=== PATIENT | female | born 1960 | race Caucasian/White ===

== ENCOUNTER → 2018-07-27 09:42 | Outpatient (CLI) | payer OTHER, SELFPAY ==
--- NOTE | 2018-07-27 | DI.MG.S_ITS ---
BILATERAL DIGITAL SCREENING MAMMOGRAM 3D/2D WITH CAD: 07/27/2018 CLINICAL: Routine screening. Family history of breast cancer. Comparison is made to exams dated: 07/19/2015 mammogram - [facility], 02/27/2013 mammogram, and 04/09/2009 mammogram - [facility]. There are scattered fibroglandular elements in both breasts. Current study was also evaluated with a Computer Aided Detection (CAD) system. No significant masses, calcifications, or other findings are seen in either breast. There has been no significant interval change. IMPRESSION: NEGATIVE There is no mammographic evidence of malignancy. A 1 year screening mammogram is recommended. NOTE: For mammograms, a report in lay terms will be sent to the patient. Approximately 15% of breast malignancies will not be visualized mammographically. In the management of a palpable breast mass, a negative mammogram must not discourage biopsy of a clinically suspicious lesion. Electronically Signed By: Twila flower/jayla:07/27/2018 14:11:20 letter sent: Normal Exam ACR BI-RADS Category 1: Negative 3341F
== END ==
PROVIDERS: PCP Family Medicine; Visit Provider Family Medicine
DX: Z12.31 Encounter for screening mammogram for malignant neoplasm of breast (principal); Z80.3 Family history of malignant neoplasm of breast
CPT/HCPCS: 77063; 77067

== ENCOUNTER → 2019-07-17 09:40 | Outpatient (CLI) | payer OTHER, SELFPAY ==
--- NOTE | 2019-07-17 | DI.US.S_ITS ---
PROCEDURE: US RENAL COMPLETE INDICATIONS: UNSPECIFIED RENAL COLIC TECHNIQUE: Real-time scanning was performed of the kidneys and bladder, with image documentation. COMPARISON: [facility], CT, ABDOMEN W&WO CONTRAST, 07/26/2015, 10:20. FINDINGS: Kidneys: Kidneys are normal in size. Right kidney measures 11.6 cm long; left kidney measures 8.7 cm long. Right renal cortical thickness is 1.6 cm; left renal cortical thickness is 1.7 cm. Renal cortical echotexture is normal. No hydronephrosis or nephrolithiasis. No suspicious solid mass lesions. Recent partial left nephrectomy. Bladder: Pre-void bladder volume is 27 mL. Post-void residual is no evaluated Pre-void images demonstrate no intraluminal masses or stones. On pre-void images, neither ureteral jets are noted with color Doppler interrogation. (Of note, ureteral jets may not be detectable in up to 25% of cases due to insufficient differences in specific gravity between ureteral and bladder urine). Miscellaneous: No free pelvic fluid. IMPRESSION: Normal appearance of the kidneys. Dictated by: Gibson DÍAZ Interpreted: Kaci Oquendo MD on 07/17/2019 at 10:46 Approved by: Kaci Oquendo M.D. on 07/17/2019 at 13:10
== END ==
PROVIDERS: PCP Family Medicine; Visit Provider Family Medicine
DX: N23 Unspecified renal colic (principal)
CPT/HCPCS: 76770

== ENCOUNTER → 2021-01-14 09:47 | Outpatient (CLI) | payer OTHER, SELFPAY ==
[2021-01-14 19:31] LABS: Hemoglobin A1C% w Est Avg Glu 4.3 % (4.0-6.0)
[2021-01-14 19:34] LABS: Alanine Aminotransferase 23 IU/L (<35); Albumin 4.5 g/dL (3.5-5.0); Albumin Globulin Ratio 1.3 (1.0-2.8); Alkaline Phosphatase 75 U/L (38-126); Aspartate Aminotransferase 27 IU/L (14-36); Bilirubin Total 1.3 mg/dL (0.2-1.3); Blood Urea Nitrogen 13 mg/dL (7-17); Calcium 10.4 mg/dL (8.4-10.2); Carbon Dioxide 25 mmol/L (22-32); Chloride 103 mmol/L (98-107); Cholesterol 225 mg/dL (140-199); Estimated Glomerular Filt Rate > 60.0 mL/min (>60); Globulin 3.4 g/dL (1.7-4.1); Glucose 106 mg/dL (80-110); HDL Cholesterol 58 mg/dL (40-60); HEMOLYSIS < 15 (0-50); LDL Cholesterol Calculated 144 mg/dL (<100); Potassium 4.5 mmol/L (3.4-5.1); Sodium 138 mmol/L (137-145); Total Protein 7.9 g/dL (6.3-8.2); Triglycerides 115 mg/dL (35-150)
== END ==
PROVIDERS: PCP Family Medicine; Visit Provider Physician Assistant Medical
DX: E11.9 Type 2 diabetes mellitus without complications (principal); E78.5 Hyperlipidemia, unspecified
CPT/HCPCS: 80053; 80061; 83036

== ENCOUNTER → 2021-02-19 09:48 | Outpatient (CLI) | payer OTHER, SELFPAY ==
--- NOTE | 2021-02-19 | DI.MG.S_ITS ---
BILATERAL DIGITAL SCREENING MAMMOGRAM 3D/2D WITH CAD: 02/19/2021 CLINICAL: Routine screening. Family history of breast cancer. Comparison is made to exams dated: 07/27/2018 mammogram, 07/19/2015 mammogram - [facility], and 02/27/2013 mammogram - [facility]. There are scattered fibroglandular elements in both breasts. Current study was also evaluated with a Computer Aided Detection (CAD) system. No significant masses, calcifications, or other findings are seen in either breast. There has been no significant interval change. IMPRESSION: NEGATIVE There is no mammographic evidence of malignancy. A 1 year screening mammogram is recommended. This exam was interpreted at Station ID: [id number]. NOTE: For mammograms, a report in lay terms will be sent to the patient. Approximately 15% of breast malignancies will not be visualized mammographically. In the management of a palpable breast mass, a negative mammogram must not discourage biopsy of a clinically suspicious lesion. Electronically Signed By: Lui sellers/jayla:02/19/2021 10:48:25 letter sent: Normal Exam ACR BI-RADS Category 1: Negative 3341F
== END ==
PROVIDERS: PCP Physician Assistant Medical; Referring Provider Physician Assistant Medical; Visit Provider Physician Assistant Medical
DX: Z12.31 Encounter for screening mammogram for malignant neoplasm of breast (principal); Z80.3 Family history of malignant neoplasm of breast; Z78.0 Asymptomatic menopausal state; M81.0 Age-related osteoporosis without current pathological fracture; M06.9 Rheumatoid arthritis, unspecified; E11.9 Type 2 diabetes mellitus without complications; E83.52 Hypercalcemia; Z82.62 Family history of osteoporosis
CPT/HCPCS: 77063; 77067; 77080

== ENCOUNTER → 2021-04-01 12:00 | Outpatient (CLI) | payer OTHER, SELFPAY ==
[2021-04-01 19:09] LABS: Hemoglobin A1C% w Est Avg Glu 4.5 % (4.0-6.0)
[2021-04-01 19:10] LABS: Alanine Aminotransferase 26 IU/L (<35); Albumin 4.2 g/dL (3.5-5.0); Albumin Globulin Ratio 1.3 (1.0-2.8); Alkaline Phosphatase 81 U/L (38-126); Aspartate Aminotransferase 24 IU/L (14-36); BUN Creatinine Ratio 27.4 (6-22); Blood Urea Nitrogen 17 mg/dL (7-17); Calcium 10.5 mg/dL (8.4-10.2); Carbon Dioxide 27 mmol/L (22-32); Chloride 100 mmol/L (98-107); Estimated Glomerular Filt Rate > 60.0 mL/min (>60); Globulin 3.3 g/dL (1.7-4.1); Glucose 84 mg/dL (80-110); HEMOLYSIS < 15 (0-50); Sodium 136 mmol/L (137-145); Total Protein 7.5 g/dL (6.3-8.2)
[2021-04-01 19:39] LABS: TSH w/ Reflex to FT4 1.25 uIU/mL (0.47-4.68)
== END ==
PROVIDERS: PCP Physician Assistant Medical; Visit Provider Physician Assistant Medical
DX: E83.52 Hypercalcemia (principal); R00.2 Palpitations; E11.9 Type 2 diabetes mellitus without complications
CPT/HCPCS: 80053; 83036; 84443

== ENCOUNTER → 2021-04-03 11:43 | Outpatient (CLI) | payer OTHER, SELFPAY ==
[2021-04-05 09:28] LABS: Parathyroid Hormone Int 35 pg/mL (15-65)
== END ==
PROVIDERS: PCP Physician Assistant Medical; Visit Provider Physician Assistant Medical
DX: E83.52 Hypercalcemia (principal)
CPT/HCPCS: 83970

== ENCOUNTER → 2021-06-11 10:43 | Outpatient (CLI) | payer OTHER, SELFPAY ==
[2021-06-11 19:14] LABS: Add Manual Diff / Slide Review NO; Basophils Absolute Auto 0 /uL (0-100); Basophils Percent Auto 0.7 % (0-2); Eosinophils Absolute Auto 100 /uL (0-450); Eosinophils Percent Auto 1.3 % (2-4); Hematocrit 40.6 % (36-46); Hemoglobin 13.7 g/dL (12.0-16.0); Lymphocytes Absolute Auto 1100 /uL (1100-4500); Lymphocytes Percent Auto 18.4 % (25-40); Mean Corpuscular HGB Conc 33.8 % (30-36); Mean Corpuscular Hemoglobin 29.3 PG (26-34); Mean Corpuscular Volume 86.7 fL (80-100); Monocytes Absolute Auto 600 /uL (0-900); Monocytes Percent Auto 11.1 % (3-14); Neutrophils Absolute Auto 4000 /uL (1500-7000); Neutrophils Percent Auto 68.5 % (50-75); Platelet Count 349 X10^3/uL (150-400); Red Blood Cell Count 4.68 X10^6/uL (4.0-5.2); Red Cell Distribution Width 14.9 % (11.6-14.8); White Blood Cell Count 5.8 X10^3/uL (4.5-11.0)
[2021-06-11 19:18] LABS: Alanine Aminotransferase 27 IU/L (<35); Albumin 4.6 g/dL (3.5-5.0); Albumin Globulin Ratio 1.4 (1.0-2.8); Alkaline Phosphatase 82 U/L (38-126); Aspartate Aminotransferase 25 IU/L (14-36); Bilirubin Total 0.9 mg/dL (0.2-1.3); Blood Urea Nitrogen 18 mg/dL (7-17); C-Reactive Protein Quant 1.2 mg/dL (<1.0); Calcium 10.2 mg/dL (8.4-10.2); Carbon Dioxide 28 mmol/L (22-32); Chloride 102 mmol/L (98-107); Estimated Glomerular Filt Rate > 60.0 mL/min (>60); Globulin 3.2 g/dL (1.7-4.1); Glucose 91 mg/dL (80-110); HEMOLYSIS < 15 (0-50); Potassium 4.6 mmol/L (3.4-5.1); Sodium 137 mmol/L (137-145); Total Protein 7.8 g/dL (6.3-8.2)
[2021-06-11 19:45] LABS: Erythrocyte Sedimentation Rate 12 MM/HR (0-20)
[2021-06-12 16:52] LABS: Hep C Virus Ab w/Reflex Quant NEGATIVE s/c (NEGATIVE); Hepatitis B Surface Antigen NEGATIVE s/c (NEGATIVE)
[2021-06-16 16:16] LABS: QuantiFERON Mitogen Value >10.00 IU/mL (.); QuantiFERON Nil Value 0.03 IU/mL (.); QuantiFERON TB Gold Plus Negative (Negative); QuantiFERON TB1 Ag Value 0.02 IU/mL (.); QuantiFERON TB2 Ag Value 0.03 IU/mL (.)
== END ==
PROVIDERS: PCP Physician Assistant Medical; Visit Provider Internal Medicine Rheumatology
DX: E83.52 Hypercalcemia (principal)
CPT/HCPCS: 36415; 80053; 85025; 85651; 86140; 86480; 86803; 87340

== ENCOUNTER → 2021-11-20 12:37 | Outpatient (CLI) | payer OTHER, SELFPAY ==
[2021-11-20 19:03] LABS: Add Manual Diff / Slide Review NO; Basophils Absolute Auto 100 /uL (0-100); Basophils Percent Auto 0.9 % (0-2); Eosinophils Absolute Auto 0 /uL (0-450); Eosinophils Percent Auto 0.6 % (2-4); Hematocrit 38.7 % (36-46); Hemoglobin 13.3 g/dL (12.0-16.0); Lymphocytes Absolute Auto 1100 /uL (1100-4500); Lymphocytes Percent Auto 19.5 % (25-40); Mean Corpuscular HGB Conc 34.3 % (30-36); Mean Corpuscular Hemoglobin 29.1 PG (26-34); Mean Corpuscular Volume 84.9 fL (80-100); Monocytes Absolute Auto 500 /uL (0-900); Monocytes Percent Auto 8.2 % (3-14); Neutrophils Absolute Auto 4100 /uL (1500-7000); Neutrophils Percent Auto 70.8 % (50-75); Platelet Count 402 X10^3/uL (150-400); Red Blood Cell Count 4.56 X10^6/uL (4.0-5.2); Red Cell Distribution Width 14.8 % (11.6-14.8); White Blood Cell Count 5.8 X10^3/uL (4.5-11.0)
[2021-11-20 19:13] LABS: Alanine Aminotransferase 22 IU/L (<35); Albumin 4.6 g/dL (3.5-5.0); Albumin Globulin Ratio 1.3 (1.0-2.8); Alkaline Phosphatase 68 U/L (38-126); Aspartate Aminotransferase 23 IU/L (14-36); BUN Creatinine Ratio 31.4 (6-22); Bilirubin Total 1.1 mg/dL (0.2-1.3); Blood Urea Nitrogen 22 mg/dL (7-17); Calcium 9.8 mg/dL (8.4-10.2); Carbon Dioxide 29 mmol/L (22-32); Chloride 102 mmol/L (98-107); Estimated Glomerular Filt Rate > 60.0 mL/min (>60); Globulin 3.5 g/dL (1.7-4.1); Glucose 104 mg/dL (80-110); HEMOLYSIS < 15 (0-50); Potassium 4.4 mmol/L (3.4-5.1); Sodium 138 mmol/L (137-145); Total Protein 8.1 g/dL (6.3-8.2)
[2021-11-24 20:27] LABS: Dilute Russell Viper Venom 30.1 sec (0.0-47.0); Lupus Reflex Interpretation Comment: (.); PTT-LA 33.4 sec (0.0-51.9)
[2021-12-04 12:51] LABS: Cardiolipin IgA NEGATIVE
== END ==
PROVIDERS: PCP Physician Assistant Medical; Visit Provider Internal Medicine Rheumatology
DX: M05.79 Rheumatoid arthritis with rheumatoid factor of multiple sites without organ or systems involvement (principal); R76.0 Raised antibody titer
CPT/HCPCS: 80053; 83520; 85025; 85598; 85613; 86147; 86148

== ENCOUNTER → 2022-05-21 10:46 | Outpatient (CLI) | payer OTHER, SELFPAY ==
--- NOTE | 2022-05-21 | DI.MG.S_ITS ---
BILATERAL DIGITAL SCREENING MAMMOGRAM 3D/2D WITH CAD: 05/21/2022 CLINICAL: Routine screening. Family history of breast cancer. Comparison is made to exams dated: 02/19/2021 mammogram, 07/27/2018 mammogram, and 07/19/2015 mammogram - [facility]. There are scattered areas of fibroglandular density in both breasts (category b / 25%-50% glandular tissue). Current study was also evaluated with a Computer Aided Detection (CAD) system. No significant masses, calcifications, or other findings are seen in either breast. There has been no significant interval change. IMPRESSION: NEGATIVE There is no mammographic evidence of malignancy. A 1 year screening mammogram is recommended. Based on the Tyrer Cuzick model (a risk assessment model) the patient's lifetime risk is 9.0% and her 10 year risk is 4.0%. According to the ACR, ACS, and NCCN guidelines, an annual breast MRI exam along with mammogram is recommended if the patient's lifetime risk is 20% or greater. This exam was interpreted at Station ID: [id number]. NOTE: For mammograms, a report in lay terms will be sent to the patient. Approximately 15% of breast malignancies will not be visualized mammographically. In the management of a palpable breast mass, a negative mammogram must not discourage biopsy of a clinically suspicious lesion. Electronically Signed By: Waqas cobb/jayla:05/21/2022 12:31:56 letter sent: Normal Exam ACR BI-RADS Category 1: Negative 3341F
== END ==
PROVIDERS: PCP Physician Assistant Medical; Referring Provider Physician Assistant Medical; Visit Provider Physician Assistant Medical
DX: Z12.31 Encounter for screening mammogram for malignant neoplasm of breast (principal); Z80.3 Family history of malignant neoplasm of breast
CPT/HCPCS: 77063; 77067

== ENCOUNTER → 2022-07-07 09:34 | Outpatient (CLI) | payer OTHER, SELFPAY ==
[2022-07-07 19:23] LABS: Add Manual Diff / Slide Review NO; Basophils Absolute Auto 0 /uL (0-100); Basophils Percent Auto 0.8 % (0-2); Eosinophils Absolute Auto 100 /uL (0-450); Eosinophils Percent Auto 1.4 % (2-4); Hematocrit 37.8 % (36-46); Hemoglobin 13.2 g/dL (12.0-16.0); Lymphocytes Absolute Auto 1100 /uL (1100-4500); Lymphocytes Percent Auto 17.2 % (25-40); Mean Corpuscular HGB Conc 34.9 % (30-36); Mean Corpuscular Hemoglobin 29.6 PG (26-34); Mean Corpuscular Volume 84.6 fL (80-100); Monocytes Absolute Auto 600 /uL (0-900); Monocytes Percent Auto 10.2 % (3-14); Neutrophils Absolute Auto 4300 /uL (1500-7000); Neutrophils Percent Auto 70.4 % (50-75); Platelet Count 369 X10^3/uL (150-400); Red Blood Cell Count 4.47 X10^6/uL (4.0-5.2); Red Cell Distribution Width 15.3 % (11.6-14.8); White Blood Cell Count 6.2 X10^3/uL (4.5-11.0)
[2022-07-07 19:36] LABS: Alanine Aminotransferase 37 IU/L (<35); Albumin 4.4 g/dL (3.5-5.0); Albumin Globulin Ratio 1.3 (1.0-2.8); Alkaline Phosphatase 83 U/L (38-126); Aspartate Aminotransferase 23 IU/L (14-36); Bilirubin Total 0.9 mg/dL (0.2-1.3); Blood Urea Nitrogen 20 mg/dL (7-17); C-Reactive Protein Quant 1.2 mg/dL (<1.0); Calcium 9.3 mg/dL (8.4-10.2); Carbon Dioxide 26 mmol/L (22-32); Chloride 99 mmol/L (98-107); Cholesterol 231 mg/dL (140-199); Estimated Glomerular Filt Rate > 60 mL/min (>60); Globulin 3.4 g/dL (1.7-4.1); Glucose 112 mg/dL (80-110); HDL Cholesterol 53 mg/dL (40-60); HEMOLYSIS < 15 (0-50); LDL Cholesterol Calculated 154 mg/dL (<100); Potassium 4.4 mmol/L (3.4-5.1); Sodium 136 mmol/L (137-145); Total Protein 7.8 g/dL (6.3-8.2); Triglycerides 119 mg/dL (35-150)
[2022-07-07 20:25] LABS: Erythrocyte Sedimentation Rate 17 MM/HR (0-20)
== END ==
PROVIDERS: PCP Physician Assistant Medical; Visit Provider Internal Medicine Rheumatology
DX: M05.79 Rheumatoid arthritis with rheumatoid factor of multiple sites without organ or systems involvement (principal); Z79.899 Other long term (current) drug therapy
CPT/HCPCS: 80053; 80061; 85025; 85651; 86140

== ENCOUNTER → 2022-10-19 09:36 | Outpatient (CLI) | payer OTHER, SELFPAY ==
[2022-10-19 19:32] LABS: Alanine Aminotransferase 43 IU/L (<35); Albumin 4.4 g/dL (3.5-5.0); Albumin Globulin Ratio 1.3 (1.0-2.8); Alkaline Phosphatase 81 U/L (38-126); Aspartate Aminotransferase 32 IU/L (14-36); BUN Creatinine Ratio 25.4 (6-22); Bilirubin Total 1.1 mg/dL (0.2-1.3); Blood Urea Nitrogen 18 mg/dL (7-17); Calcium 9.7 mg/dL (8.4-10.2); Carbon Dioxide 28 mmol/L (22-32); Chloride 100 mmol/L (98-107); Cholesterol 203 mg/dL (140-199); Estimated Glomerular Filt Rate > 60 mL/min (>60); Globulin 3.4 g/dL (1.7-4.1); Glucose 110 mg/dL (80-110); HDL Cholesterol 73 mg/dL (40-60); HEMOLYSIS < 15 (0-50); LDL Cholesterol Calculated 102 mg/dL (<100); Potassium 4.6 mmol/L (3.4-5.1); Sodium 138 mmol/L (137-145); Total Protein 7.8 g/dL (6.3-8.2); Triglycerides 141 mg/dL (35-150)
[2022-10-19 20:04] LABS: TSH w/ Reflex to FT4 1.33 uIU/mL (0.47-4.68)
[2022-10-19 20:44] LABS: Hemoglobin A1C% w Est Avg Glu 4.9 % (4.0-6.0)
== END ==
PROVIDERS: PCP Physician Assistant Medical; Visit Provider Physician Assistant Medical
DX: E11.9 Type 2 diabetes mellitus without complications (principal); E78.5 Hyperlipidemia, unspecified; E83.52 Hypercalcemia; I10 Essential (primary) hypertension
CPT/HCPCS: 80053; 80061; 83036; 84443

== ENCOUNTER → 2023-01-11 09:10 | Outpatient (CLI) | payer OTHER, SELFPAY ==
[2023-01-11 19:50] LABS: Alanine Aminotransferase 29 IU/L (<35); Albumin 4.5 g/dL (3.5-5.0); Albumin Globulin Ratio 1.4 (1.0-2.8); Alkaline Phosphatase 73 U/L (38-126); Aspartate Aminotransferase 23 IU/L (14-36); BUN Creatinine Ratio 29.7 (6-22); Bilirubin Total 1.1 mg/dL (0.2-1.3); Blood Urea Nitrogen 19 mg/dL (7-17); Calcium 9.4 mg/dL (8.4-10.2); Carbon Dioxide 27 mmol/L (22-32); Chloride 100 mmol/L (98-107); Cholesterol 174 mg/dL (140-199); Estimated Glomerular Filt Rate > 60 mL/min (>60); Globulin 3.2 g/dL (1.7-4.1); Glucose 112 mg/dL (80-110); HDL Cholesterol 65 mg/dL (40-60); HEMOLYSIS < 15 (0-50); LDL Cholesterol Calculated 87 mg/dL (<100); Potassium 4.5 mmol/L (3.4-5.1); Sodium 137 mmol/L (137-145); Total Protein 7.7 g/dL (6.3-8.2); Triglycerides 110 mg/dL (35-150)
[2023-01-11 20:13] LABS: TSH w/ Reflex to FT4 1.82 uIU/mL (0.47-4.68)
[2023-01-13 01:51] LABS: Labcorp Hemoglobin (Hb) A1c 4.8 % (4.8-5.6)
== END ==
PROVIDERS: PCP Physician Assistant Medical; Visit Provider Physician Assistant Medical
DX: E11.9 Type 2 diabetes mellitus without complications (principal); E78.5 Hyperlipidemia, unspecified; I10 Essential (primary) hypertension
CPT/HCPCS: 80053; 80061; 83036; 84443

== ENCOUNTER → 2023-02-02 13:57 | Outpatient (CLI) | payer OTHER, SELFPAY ==
[2023-02-02 14:45] LABS: D Dimer < 215 ng/ml (<500)
== END ==
PROVIDERS: Physician Assistant; PCP Physician Assistant Medical; Referring Provider Physician Assistant Medical; Visit Provider Physician Assistant Medical
DX: M79.606 Pain in leg, unspecified (principal)
CPT/HCPCS: 36415; 85379

== ENCOUNTER → 2023-02-09 12:58 | Outpatient (CLI) | payer OTHER, SELFPAY ==
[2023-02-09 20:41] LABS: Creatinine Urine Random 8.2 mg/dL
[2023-02-09 20:45] LABS: Microalbumin Urine Random < 0.6 mg/dL (0-1.6)
[2023-02-09 20:56] LABS: Vitamin B12 Reflex MMA if <400 832 pg/mL (239-931)
== END ==
PROVIDERS: PCP Physician Assistant Medical; Visit Provider Physician Assistant
DX: E11.9 Type 2 diabetes mellitus without complications (principal); Z85.528 Personal history of other malignant neoplasm of kidney; M79.662 Pain in left lower leg
CPT/HCPCS: 82043; 82570; 82607

== ENCOUNTER → 2023-03-11 11:10 | Outpatient (CLI) | payer OTHER, SELFPAY | PROVIDERS: Family Provider Physician Assistant Medical; PCP Physician Assistant Medical; Referring Provider Physician Assistant; Visit Provider Physician Assistant | DX: Z87.39 Personal history of other diseases of the musculoskeletal system and connective tissue (principal); M79.662 Pain in left lower leg | CPT/HCPCS: 95886; 95909 ==

== ENCOUNTER → 2023-05-06 09:04 | Outpatient (CLI) | payer OTHER, SELFPAY | PROVIDERS: Family Provider Physician Assistant Medical; PCP Physician Assistant Medical; Visit Provider Physician Assistant Medical | DX: N39.0 Urinary tract infection, site not specified (principal) | CPT/HCPCS: 87077; 87086; 87186 ==

== ENCOUNTER → 2023-05-24 14:11 | Outpatient (CLI) | payer OTHER, SELFPAY ==
--- NOTE | 2023-05-24 14:12 | DI.RAD.S_ITS ---
Bone Density Report Name: AUDREY CALLE Age: 63 Sex: Female Ethnicity: White Date of : 1960 Indication: osteopenia; Referring Provider: IZAIAH HINES Study: Bone densitometry was performed. Exam Date: May 24, 2023 Accession number: [id number] Bone Density: Region BMD T-score Z-score Classification AP Spine(L1-L4) 0.950 -0.9 0.8 Normal Femoral Neck (Left) 0.575 -2.5 -1.0 Osteoporosis Total Hip (Left) 0.715 -1.9 -0.7 Osteopenia Femoral Neck (Right) 0.632 -2.0 -0.5 Osteopenia Total Hip (Right) 0.860 -0.7 0.5 Normal Total Hip Mean 0.787 -1.3 -0.1 Osteopenia World Health Organization criteria for BMD impression classify patients as: Normal (T-score at or above -1.0), Osteopenia (T-score between -1.0 and -2.5), or Osteoporosis (T-score at or below -2.5). 10-year Fracture Risk: FRAX not reported because: Some T-score for Spine Total or Hip Total or Femoral Neck at or below -2.5 Previous Exams: -- Region Exam Age BMD T-score BMD Change BMD Change Date g/cm2 vs Baseline vs Previous -- AP Spine (L1-L4) 05/24/2023 63 0.950 -0.9 -0.138 (-12.7%)# -0.138 (-12.7%)# 02/19/2021 61 1.088 0.4 Total Hip(Left) 05/24/2023 63 0.715 -1.9 0.021 (3.1%)# 0.021 (3.1%)# 02/19/2021 61 0.694 -2.0 Total Hip(Right) 05/24/2023 63 0.860 -0.7 0.060 (7.5%)# 0.060 (7.5%)# 02/19/2021 61 0.800 -1.2 -- *Denotes significance at 95% confidence level, LSC for AP Spine = 0.022 g/cm2, LSC for Total Hip = 0.027 g/cm2 # Denotes dissimilar scan types or analysis methods Impression: The patient has osteoporosis, based on the Left Femoral Neck T-score. No significant bone loss was observed. Discussion: INCREASED RISK OF FRACTURE. BONE DENSITY IS UNDESIRABLY LOW AT ONE OR MORE SKELETAL SITES, CONSISTENT WITH POSTMENOPAUSAL OSTEOPOROSIS. This patient's lowest T-score meets the World Health Organization's (WHO) criteria for osteoporosis at one or more sites (T-score -2.5 or below). In untreated patients, the risk of osteoporotic fracture increases approximately two-fold for each 1.0 SD decrease in T-score. Low bone density is not the only risk factor for fracture; also consider factors such as patient's age, frailty or poor health, risk of falling, risk of injury, previous osteoporotic fracture, family history of osteoporosis, cigarette smoking, low body weight, etc. Not everyone with low bone mineral density has osteoporosis; osteomalacia and other metabolic bone disorders should also be considered. Patients who have osteoporosis should be evaluated for specific diseases and conditions (secondary causes) that may cause or contribute to bone loss. The [place] [employer] Endocrinologists (AACE) and National Osteoporosis Foundation (NOF) recommend pharmacologic intervention for all postmenopausal women whose T-score is in this range. The patient should follow a healthful lifestyle (good nutrition with adequate calcium and vitamin D, and appropriate weight-bearing exercise). Follow-Up: Consider a repeat BMD and Vertebral Fracture Assessment (VFA) exam in 2 years or sooner if medically necessary, to reassess this patient's status. Reported by: YOSHI MCCRACKEN M.D. on 05/24/2023 6:37:00 PM.
== END ==
PROVIDERS: Family Provider Physician Assistant Medical; PCP Physician Assistant Medical; Referring Provider Physician Assistant Medical; Visit Provider Physician Assistant Medical
DX: M81.0 Age-related osteoporosis without current pathological fracture (principal); M06.9 Rheumatoid arthritis, unspecified; Z78.0 Asymptomatic menopausal state; Z92.241 Personal history of systemic steroid therapy
CPT/HCPCS: 77080

== ENCOUNTER → 2023-05-31 09:23 | Outpatient (CLI) | payer OTHER, SELFPAY ==
[2023-05-31 19:34] LABS: Alanine Aminotransferase 32 IU/L (<35); Albumin 4.4 g/dL (3.5-5.0); Albumin Globulin Ratio 1.4 (1.0-2.8); Alkaline Phosphatase 71 U/L (38-126); Aspartate Aminotransferase 26 IU/L (14-36); BUN Creatinine Ratio 24.6 (6-22); Bilirubin Total 1.4 mg/dL (0.2-1.3); Blood Urea Nitrogen 15 mg/dL (7-17); Calcium 10.2 mg/dL (8.4-10.2); Carbon Dioxide 24 mmol/L (22-32); Chloride 103 mmol/L (98-107); Cholesterol 186 mg/dL (140-199); Estimated Glomerular Filt Rate > 60 mL/min (>60); Globulin 3.2 g/dL (1.7-4.1); Glucose 108 mg/dL (80-110); HDL Cholesterol 59 mg/dL (40-60); HEMOLYSIS < 15 (0-50); LDL Cholesterol Calculated 100 mg/dL (<100); Potassium 4.4 mmol/L (3.4-5.1); Sodium 137 mmol/L (137-145); Total Protein 7.6 g/dL (6.3-8.2); Triglycerides 136 mg/dL (35-150)
[2023-05-31 19:49] LABS: Hemoglobin A1C% w Est Avg Glu 4.6 % (4.0-6.0)
[2023-05-31 20:04] LABS: TSH w/ Reflex to FT4 1.59 uIU/mL (0.47-4.68)
[2023-05-31 20:20] LABS: Add Manual Diff / Slide Review NO; Basophils Absolute Auto 100 /uL (0-100); Eosinophils Absolute Auto 100 /uL (0-450); Hematocrit 39.2 % (36-46); Hemoglobin 13.5 g/dL (12.0-16.0); Lymphocytes Absolute Auto 1000 /uL (1100-4500); Lymphocytes Percent Auto 19.9 % (25-40); Mean Corpuscular HGB Conc 34.3 % (30-36); Mean Corpuscular Volume 87.4 fL (80-100); Monocytes Absolute Auto 500 /uL (0-900); Monocytes Percent Auto 10.4 % (3-14); Neutrophils Absolute Auto 3400 /uL (1500-7000); Neutrophils Percent Auto 67.7 % (50-75); Platelet Count 264 X10^3/uL (150-400); Red Blood Cell Count 4.49 X10^6/uL (4.0-5.2); Red Cell Distribution Width 14.8 % (11.6-14.8); White Blood Cell Count 5.1 X10^3/uL (4.5-11.0)
[2023-05-31 20:23] LABS: Vitamin B12 877 pg/mL (239-931)
[2023-05-31 20:42] LABS: Microalbumin Urine Random < 0.6 mg/dL (0-1.6)
== END ==
PROVIDERS: Family Provider Physician Assistant Medical; PCP Physician Assistant Medical; Visit Provider Physician Assistant Medical
DX: M79.662 Pain in left lower leg (principal); Z87.39 Personal history of other diseases of the musculoskeletal system and connective tissue; M54.30 Sciatica, unspecified side; I10 Essential (primary) hypertension; E11.9 Type 2 diabetes mellitus without complications; E78.5 Hyperlipidemia, unspecified; E83.52 Hypercalcemia
CPT/HCPCS: 80053; 80061; 82043; 82570; 82607; 83036; 84443; 85025

== ENCOUNTER → 2023-06-17 11:28 | Outpatient (CLI) | payer OTHER, SELFPAY ==
--- NOTE | 2023-06-17 | DI.MG.S_ITS ---
BILATERAL DIGITAL SCREENING MAMMOGRAM 3D/2D WITH CAD: 06/17/2023 CLINICAL: Routine screening. Family history of breast cancer. Comparison is made to exams dated: 05/21/2022 mammogram, 02/19/2021 mammogram, and 07/27/2018 mammogram - [facility]. There are scattered areas of fibroglandular density in both breasts (category b / 25%-50% glandular tissue). Current study was also evaluated with a Computer Aided Detection (CAD) system. There is an asymmetry in the right breast anterior depth medial region seen on the craniocaudal view only. No other significant masses, calcifications, or other findings are seen in either breast. IMPRESSION: INCOMPLETE: NEEDS ADDITIONAL IMAGING EVALUATION The asymmetry in the right breast is indeterminate. Additional views with possible ultrasound are recommended. Based on the Tyrer Cuzick model (a risk assessment model) the patient's lifetime risk is 8.7% and her 10 year risk is 4.0%. According to the ACR, ACS, and NCCN guidelines, an annual breast MRI exam along with mammogram is recommended if the patient's lifetime risk is 20% or greater. This exam was interpreted at Station ID: [id number]. NOTE: For mammograms, a report in lay terms will be sent to the patient. Approximately 15% of breast malignancies will not be visualized mammographically. In the management of a palpable breast mass, a negative mammogram must not discourage biopsy of a clinically suspicious lesion. Electronically Signed By: Twila flower/jayla:06/17/2023 16:47:01 letter sent: Additional Imaging Needed ACR BI-RADS Category 0: Incomplete 3340F
== END ==
PROVIDERS: Family Provider Physician Assistant Medical; PCP Physician Assistant Medical; Referring Provider Physician Assistant Medical; Visit Provider Physician Assistant Medical
DX: Z12.31 Encounter for screening mammogram for malignant neoplasm of breast (principal); Z80.3 Family history of malignant neoplasm of breast; N64.89 Other specified disorders of breast
CPT/HCPCS: 77063; 77067

== ENCOUNTER → 2023-06-28 08:32 | Outpatient (CLI) | payer OTHER, SELFPAY ==
--- NOTE | 2023-06-28 | DI.MG.S_ITS ---
UNILATERAL RIGHT DIGITAL DIAGNOSTIC MAMMOGRAM 3D/2D WITH ADDITIONAL VIEWS: 06/28/2023 CLINICAL: Additional evaluation requested from prior study. Comparison is made to exams dated: 06/17/2023 mammogram, 05/21/2022 mammogram, and 02/19/2021 mammogram - [facility]. There are scattered areas of fibroglandular density in the right breast (category b / 25%-50% glandular tissue). The asymmetry seen on recent screening mammogram did not persist with additional imaging and is consistent with superimposition of normal breast tissue. No significant masses, calcifications, or other findings are seen in the breast. IMPRESSION: NEGATIVE Superimposition of normal breast tissue. No mammographic evidence of malignancy. A 1 year screening mammogram is recommended. Findings and recommendations were conveyed to the patient during today's evaluation. Based on the Tyrer Cuzick model (a risk assessment model) the patient's lifetime risk is 8.7% and her 10 year risk is 4.0%. According to the ACR, ACS, and NCCN guidelines, an annual breast MRI exam along with mammogram is recommended if the patient's lifetime risk is 20% or greater. This exam was interpreted at Station ID: [id number]. NOTE: For mammograms, a report in lay terms will be sent to the patient. Approximately 15% of breast malignancies will not be visualized mammographically. In the management of a palpable breast mass, a negative mammogram must not discourage biopsy of a clinically suspicious lesion. Electronically Signed By: Nerissa De La Cruz M.D. esb/:06/28/2023 09:17:45 letter sent: Normal Exam ACR BI-RADS Category 1: Negative 3341F
== END ==
PROVIDERS: Family Provider Physician Assistant Medical; PCP Physician Assistant Medical; Referring Provider Physician Assistant Medical; Visit Provider Physician Assistant Medical
DX: R92.8 Other abnormal and inconclusive findings on diagnostic imaging of breast (principal)
CPT/HCPCS: 77065; G0279

== ENCOUNTER → 2023-09-01 09:00 | Outpatient (CLI) | payer OTHER, SELFPAY ==
[2023-09-01 19:42] LABS: Hematocrit 37.8 % (36-46); Hemoglobin 13.4 g/dL (12.0-16.0); Mean Corpuscular HGB Conc 35.5 % (30-36); Mean Corpuscular Volume 87.4 fL (80-100); Platelet Count 324 X10^3/uL (150-400); Red Blood Cell Count 4.33 X10^6/uL (4.0-5.2); Red Cell Distribution Width 14.8 % (11.6-14.8)
[2023-09-01 19:50] LABS: Hemoglobin A1C% w Est Avg Glu 4.9 % (4.0-6.0)
[2023-09-01 19:55] LABS: Alanine Aminotransferase 33 IU/L (<35); Albumin 4.4 g/dL (3.5-5.0); Albumin Globulin Ratio 1.2 (1.0-2.8); Alkaline Phosphatase 65 U/L (38-126); Aspartate Aminotransferase 38 IU/L (14-36); BUN Creatinine Ratio 24.6 (6-22); Bilirubin Total 1.4 mg/dL (0.2-1.3); Blood Urea Nitrogen 15 mg/dL (7-17); Calcium 10.4 mg/dL (8.4-10.2); Carbon Dioxide 29 mmol/L (22-32); Chloride 101 mmol/L (98-107); Cholesterol 182 mg/dL (140-199); Estimated Glomerular Filt Rate > 60 mL/min (>60); Globulin 3.6 g/dL (1.7-4.1); Glucose 120 mg/dL (80-110); HDL Cholesterol 53 mg/dL (40-60); HEMOLYSIS < 15 (0-50); LDL Cholesterol Calculated 100 mg/dL (<100); Potassium 4.3 mmol/L (3.4-5.1); Sodium 137 mmol/L (137-145); Triglycerides 143 mg/dL (35-150)
[2023-09-01 20:09] LABS: Neutrophils Absolute Manual 2080 /uL (3000-5900); Total Cells Counted 100
[2023-09-01 20:10] LABS: RBC Morphology Normal Morphology
[2023-09-01 20:25] LABS: TSH w/ Reflex to FT4 1.29 uIU/mL (0.47-4.68)
== END ==
PROVIDERS: Family Provider Physician Assistant Medical; PCP Physician Assistant Medical; Visit Provider Physician Assistant Medical
DX: E11.9 Type 2 diabetes mellitus without complications (principal); I10 Essential (primary) hypertension; E78.5 Hyperlipidemia, unspecified
CPT/HCPCS: 80053; 80061; 83036; 84443; 85025

== ENCOUNTER → 2023-10-14 12:10 | Outpatient (CLI) | payer OTHER, SELFPAY | PROVIDERS: Family Provider Physician Assistant Medical; PCP Physician Assistant Medical; Visit Provider Nurse Practitioner Adult Health | DX: R30.0 Dysuria (principal) | CPT/HCPCS: 87086 ==

== ENCOUNTER → 2023-10-19 13:52 | Outpatient (CLI) | payer OTHER, SELFPAY ==
[2023-10-19 19:19] LABS: Alanine Aminotransferase 28 IU/L (<35); Albumin 4.5 g/dL (3.5-5.0); Albumin Globulin Ratio 1.4 (1.0-2.8); Alkaline Phosphatase 69 U/L (38-126); Aspartate Aminotransferase 26 IU/L (14-36); BUN Creatinine Ratio 22.9 (6-22); Bilirubin Total 1.2 mg/dL (0.2-1.3); Blood Urea Nitrogen 16 mg/dL (7-17); Calcium 10.1 mg/dL (8.4-10.2); Carbon Dioxide 28 mmol/L (22-32); Chloride 102 mmol/L (98-107); Estimated Glomerular Filt Rate > 60 mL/min (>60); Globulin 3.3 g/dL (1.7-4.1); Glucose 92 mg/dL (80-110); HEMOLYSIS < 15 (0-50); Potassium 4.5 mmol/L (3.4-5.1); Sodium 136 mmol/L (137-145); Total Protein 7.8 g/dL (6.3-8.2)
[2023-10-19 20:23] LABS: Add Manual Diff / Slide Review NO; Basophils Absolute Auto 100 /uL (0-100); Eosinophils Absolute Auto 100 /uL (0-450); Eosinophils Percent Auto 1.2 % (2-4); Hemoglobin 13.3 g/dL (12.0-16.0); Lymphocytes Absolute Auto 1100 /uL (1100-4500); Lymphocytes Percent Auto 18.5 % (25-40); Mean Corpuscular Hemoglobin 30.3 PG (26-34); Mean Corpuscular Volume 86.5 fL (80-100); Monocytes Absolute Auto 500 /uL (0-900); Monocytes Percent Auto 7.9 % (3-14); Neutrophils Absolute Auto 4100 /uL (1500-7000); Neutrophils Percent Auto 71.4 % (50-75); Platelet Count 342 X10^3/uL (150-400); Red Blood Cell Count 4.39 X10^6/uL (4.0-5.2); White Blood Cell Count 5.8 X10^3/uL (4.5-11.0)
[2023-10-19 23:33] LABS: Creatinine Urine Random 9.9 mg/dL
[2023-10-20 00:08] LABS: Microalbumin Urine Random < 0.6 mg/dL (0-1.6)
[2023-10-22 09:48] LABS: Parathyroid Hormone, Intact 42
[2023-10-22 09:49] LABS: Calcium 9.9 mg/dL (8.7-10.3)
== END ==
PROVIDERS: Internal Medicine Rheumatology; Family Provider Physician Assistant Medical; PCP Physician Assistant Medical; Visit Provider Physician Assistant Medical
DX: E11.9 Type 2 diabetes mellitus without complications (principal); E83.52 Hypercalcemia; M05.79 Rheumatoid arthritis with rheumatoid factor of multiple sites without organ or systems involvement; Z79.899 Other long term (current) drug therapy
CPT/HCPCS: 80053; 82043; 82310; 82570; 83970; 85025

== ENCOUNTER → 2023-10-20 09:04 | Outpatient (CLI) | payer OTHER, SELFPAY ==
[2023-10-22 13:19] LABS: Fecal Immunochemical Test Negative (Negative)
== END ==
PROVIDERS: Family Provider Physician Assistant Medical; PCP Physician Assistant Medical; Visit Provider Physician Assistant Medical
DX: M79.662 Pain in left lower leg (principal); M54.30 Sciatica, unspecified side; I10 Essential (primary) hypertension; E11.9 Type 2 diabetes mellitus without complications; E78.5 Hyperlipidemia, unspecified; E83.52 Hypercalcemia; Z87.39 Personal history of other diseases of the musculoskeletal system and connective tissue
CPT/HCPCS: 82274

== ENCOUNTER → 2023-10-22 12:43 | Outpatient (CLI) | payer OTHER, SELFPAY ==
--- NOTE | 2023-10-22 12:45 | DI.US.S_ITS ---
PROCEDURE: US ABDOMEN COMPLETE INDICATIONS: PAIN; HX KIDNEY CANCER TECHNIQUE: Real-time scanning was performed of the abdominal and retroperitoneal organs, with image documentation. COMPARISON: [facility], CT, ABDOMEN W&WO CONTRAST, 07/26/2015, 10:20. [facility], US, US PELVIC COMPLETE, 10/22/2023, 13:10. FINDINGS: Liver: The liver demonstrates enlarged size. The liver demonstrates generalized mildly increased echogenicity. This decreases ultrasound sensitivity for detection of hepatic masses. Gallbladder: No findings of gallstones or sludge are seen. The gallbladder wall is not thickened, measuring 3 mm or less. No specific pericholecystic fluid is seen. The sonographic Moralez sign is negative. Biliary ducts: Intrahepatic bile ducts are non-dilated. Extrahepatic bile duct caliber measures 4-5 mm. Normal is 6-7 mm or less in diameter, or 10 mm or less post-cholecystectomy. Pancreas: Visualized portions of the pancreas are sonographically normal. Spleen: Spleen is normal in size and homogeneous in echotexture. Kidneys: Kidneys are normal in size and echotexture. Right kidney measures 11.5 cm long; left kidney measures 10 cm long. No hydronephrosis or nephrolithiasis. No solid masses. Aorta: Visualized aorta is normal in caliber at less than 3 cm. Iliacs: Proximal common iliac arteries are normal in caliber at less than 2.5 cm. IVC: Intrahepatic inferior vena cava is patent. Miscellaneous: No free abdominal fluid. IMPRESSION: The kidneys demonstrate an unremarkable appearance, without masses seen on this study. Enlarged, echogenic liver, most likely related to fatty infiltration. Dictated by: Tony Reece M.D. on 10/22/2023 at 17:05 Approved by: Tony Reece M.D. on 10/22/2023 at 17:06
--- NOTE | 2023-10-22 12:45 | DI.US.S_ITS ---
PROCEDURE: US PELVIC COMPLETE INDICATIONS: PAIN; HX KIDNEY CANCER TECHNIQUE: Real-time scanning was performed of the pelvic organs, with image documentation. Additional endovaginal scanning was necessary due to incomplete visualization of the adnexal and endometrial structures by transabdominal scanning. COMPARISON: [facility], US, PELVIC COMPLETE, 07/19/2015, 14:23. FINDINGS: Uterus: Uterus is anteverted and normal in size at 4.4 x 2.1 x 3.3 cm. The myometrium is homogeneous. The endometrium measures 2.8 mm combined thickness. No uterine fibroids. Ovaries: The ovaries not seen. There is a complex right adnexal mass measuring 2.9 x 2.6 x 2.9 centimeters without vascularity. Other: No pathologic free abdominal or pelvic fluid. IMPRESSION: Complex right adnexal mass measuring 2.9 centimeters without vascularity. This is possibly ovarian in origin as the ovaries are not seen. Recommend gynecology consult and short-term follow-up ultrasound in 6-12 weeks. We strive to produce accurate, complete, and clear reports of imaging services. To assist us in improving patient care, this report was composed using standard report templates and voice recognition software. Therefore, it may contain abnormal punctuation, insertions and/or omissions. Occasional wrong-word or sound-alike substitutions may occur. Though we review the report and make efforts to correct it, we do recommend that the report be read carefully in proper context to recognize any text inaccuracies. Dictated by: Loc Michael M.D. on 10/22/2023 at 15:54 Approved by: Loc Michael M.D. on 10/22/2023 at 15:56
== END ==
PROVIDERS: Family Provider Physician Assistant Medical; PCP Physician Assistant Medical; Referring Provider Nurse Practitioner Adult Health; Visit Provider Nurse Practitioner Adult Health
DX: N94.89 Other specified conditions associated with female genital organs and menstrual cycle (principal); R10.2 Pelvic and perineal pain
CPT/HCPCS: 76700; 76830; 76856

== ENCOUNTER → 2023-12-07 12:15 | Outpatient (CLI) | payer OTHER, SELFPAY ==
--- NOTE | 2023-12-07 12:16 | DI.US.S_ITS ---
PROCEDURE: US PELVIC COMPLETE INDICATIONS: FOLLOW-UP RIGHT ADNEXAL MASS TECHNIQUE: Real-time scanning was performed of the pelvic organs, with image documentation. Additional endovaginal scanning was necessary due to incomplete visualization of the adnexal and endometrial structures by transabdominal scanning. COMPARISON: [facility], US, US PELVIC COMPLETE, 10/22/2023, 13:10. FINDINGS: Uterus: Uterus is anteverted and normal in size at 4.3 x 2.5 x 3.2 cm. The myometrium is homogeneous. The endometrium measures 3.1 mm combined thickness. Ovaries: The ovaries are not seen. Note is made of a 2.9 x 1.9 x 2.4 cm solid lesion of the right adnexa with internal vascularity. This lesion most likely appeared as a complex cystic structure measuring 2.9 x 2.6 x 2.9 cm on the prior study. This structure does not show peristalsis. Other: No pathologic free abdominal or pelvic fluid. IMPRESSION: 2.9 cm right adnexal mass noted on today's ultrasound probably corresponds to the previously identified complex right adnexal mass/cystic structure. Recommend gynecologic consult. We strive to produce accurate, complete, and clear reports of imaging services. To assist us in improving patient care, this report was composed using standard report templates and voice recognition software. Therefore, it may contain abnormal punctuation, insertions and/or omissions. Occasional wrong-word or sound-alike substitutions may occur. Though we review the report and make efforts to correct it, we do recommend that the report be read carefully in proper context to recognize any text inaccuracies. Dictated by: Ed Weber M.D. on 12/07/2023 at 16:28 Approved by: Ed Weber M.D. on 12/07/2023 at 16:38
== END ==
LOC: US 12:15
PROVIDERS: Family Provider Physician Assistant Medical; PCP Physician Assistant Medical; Referring Provider Nurse Practitioner Adult Health; Visit Provider Nurse Practitioner Adult Health
DX: N94.89 Other specified conditions associated with female genital organs and menstrual cycle (principal)
CPT/HCPCS: 76830; 76856; 93976

== ENCOUNTER → 2023-12-20 11:24 | Outpatient (CLI) | payer OTHER, SELFPAY ==
[2023-12-23 10:37] LABS: Cancer Antigen 125 8.1 U/mL (0-35)
== END ==
PROVIDERS: Family Provider Physician Assistant Medical; PCP Physician Assistant Medical; Visit Provider Nurse Practitioner Adult Health
DX: N94.89 Other specified conditions associated with female genital organs and menstrual cycle (principal)
CPT/HCPCS: 86304

== ENCOUNTER → 2024-02-17 12:44 | Outpatient (CLI) | payer MEDICARE, OTHER, SELFPAY ==
--- NOTE | 2024-02-17 12:45 | DI.US.S_ITS ---
PROCEDURE: US PELVIC COMPLETE INDICATIONS: FOLLOW-UP RIGHT ADNEXAL MASS TECHNIQUE: Real-time scanning was performed of the pelvic organs, with image documentation. Additional endovaginal scanning was necessary due to incomplete visualization of the adnexal and endometrial structures by transabdominal scanning. COMPARISON: [facility], US, US PELVIC COMPLETE, 12/07/2023, 12:33. FINDINGS: Uterus: Uterus is anteverted and normal in size at 3.6 x 2.1 x 2.0 cm. The myometrium is homogeneous. The endometrium is not visualized. Ovaries: The ovaries are not visualized. There is a right adnexal mass with dense calcification and some vascularity which measures 3.2 x 3.0 x 3.2 cm. This mass measured 2.9 x 1.9 x 2.4 cm on the comparison ultrasound dated December 07, 2023. There is also a left adnexal mass which measures 5.2 x 5.3 x 2.9 cm and demonstrates calcification and some vascularity. This was not visualized on the prior comparison ultrasound. Other: No pathologic free abdominal or pelvic fluid. IMPRESSION: Bilateral calcified adnexal masses which are incompletely characterized by ultrasound given the extensive shadowing from calcification. The right adnexal mass appears increased in size when compared with the study dated December 07, 2023. Further characterization with CT or MRI is recommended. We strive to produce accurate, complete, and clear reports of imaging services. To assist us in improving patient care, this report was composed using standard report templates and voice recognition software. Therefore, it may contain abnormal punctuation, insertions and/or omissions. Occasional wrong-word or sound-alike substitutions may occur. Though we review the report and make efforts to correct it, we do recommend that the report be read carefully in proper context to recognize any text inaccuracies. Dictated by: Twila Terry M.D. on 02/17/2024 at 14:44 Approved by: Twila Terry M.D. on 02/17/2024 at 14:47
[2024-02-17 13:56] LABS: Estimated Glomerular Filt Rate > 60 mL/min (>60)
[2024-02-17 14:01] LABS: Alanine Aminotransferase 33 IU/L (<35); Albumin 4.6 g/dL (3.5-5.0); Albumin Globulin Ratio 1.5 (1.0-2.8); Alkaline Phosphatase 70 U/L (38-126); Aspartate Aminotransferase 26 IU/L (14-36); Bilirubin Total 1.3 mg/dL (0.2-1.3); Blood Urea Nitrogen 18 mg/dL (7-17); Calcium 9.5 mg/dL (8.4-10.2); Carbon Dioxide 25 mmol/L (22-32); Chloride 104 mmol/L (98-107); Estimated Glomerular Filt Rate > 60 mL/min (>60); Glucose 117 mg/dL (80-110); HEMOLYSIS < 15 (0-50); Potassium 3.8 mmol/L (3.4-5.1); Sodium 134 mmol/L (137-145); Total Protein 7.6 g/dL (6.3-8.2)
[2024-02-17 14:32] LABS: Cancer Antigen 125 7.6 U/mL (0-35); Carcinoembryonic Antigen 0.8 ng/mL (0.1-3.0)
== END ==
LOC: US 12:45
PROVIDERS: Family Medicine; Family Provider Physician Assistant Medical; PCP Physician Assistant Medical; Referring Provider Obstetrics & Gynecology; Visit Provider Obstetrics & Gynecology
DX: Z13.89 Encounter for screening for other disorder (principal); N94.89 Other specified conditions associated with female genital organs and menstrual cycle; R19.00 Intra-abdominal and pelvic swelling, mass and lump, unspecified site
CPT/HCPCS: 76830; 76856; 80053; 82378; 82565; 86304

== ENCOUNTER → 2024-02-17 13:31 | Outpatient (CLI) | payer MEDICARE, OTHER, SELFPAY ==
--- NOTE | 2024-02-17 13:33 | DI.CT.S_ITS ---
PROCEDURE: CT ABDOMEN PELVIS W CON INDICATIONS: abdominal/pelvic mass on u/s TECHNIQUE: After the administration of intravenous contrast, axial sections acquired from the lung bases to the pubic symphysis. Coronal and sagittal reformats were performed. For radiation dose reduction, the following was used: automated exposure control, adjustment of mA and/or kV according to patient size. COMPARISON: [facility], CT, ABDOMEN W&WO CONTRAST, 07/26/2015, 10:20. [facility], US, PELVIC COMPLETE, 07/19/2015, 14:23. [facility], US, US PELVIC COMPLETE, 02/17/2024, 13:01. [facility], , US PELVIC COMPLETE, 12/07/2023, 12:33. [facility], , US PELVIC COMPLETE, 10/22/2023, 13:10. FINDINGS: Image quality: Diagnostic. Lower Chest: No significant findings. ABDOMEN: Liver: No solid mass. Normal size. Mild hepatic steatosis. There is a 4 mm indeterminate hypodense nodule in liver, most likely a cyst. Gallbladder: No radiopaque gallstones or wall thickening. Biliary ducts: No biliary dilation. Pancreas: No ductal dilation. Spleen: Size is within normal limits. Adrenal Glands: No adrenal nodules. Kidneys and Ureters: Postsurgical changes in left kidney. There is mild renal cortical atrophy in the superior pole. No hydronephrosis. No solid mass. No complex renal cystic lesion which requires follow up. Stomach and Bowel: Normal colonic caliber, without significant wall thickening. Mild diverticulosis without diverticulitis. Peritoneum: No abnormal intraperitoneal fluid. No free air. Ventral Wall: No significant ventral hernia. Abdominal Nodes: No retroperitoneal or mesenteric adenopathy by size criteria. Vessels: Aorta and inferior vena cava are normal in size. PELVIS: Pelvic Organs: Uterus is enlarged measuring 9.8 x 8.4 by 9.7 cm. There is a large calcified alfredito in in central uterus measuring 5.6 x 7.8 x 6.9 cm. A 2.6 x 3.9 x 3.1 cm subserosal mass is seen in the posterior uterine wall. These masses are most likely uterine leiomyomas. Unfortunately, pelvis was not included in the prior abdominal CT dated 07/26/2015. The left ovary is visualized measuring approximately 1.0 x 2.6 cm. No right adnexal mass. The right ovary is not definitively identified on CT. No pathological free-fluid in pelvis. Bladder: No bladder wall thickening, accounting for underdistention. Pelvic Nodes: No enlarged lymph nodes. Miscellaneous: No inguinal hernias are seen. Bones: No aggressive osseous abnormality. IMPRESSION: 1. Calcified masses in uterus, most compatible with calcified uterine leiomyomas. Based on ultrasound, there may be rapid enlargement. Uterine leiomyosarcoma is a differential diagnostic possibility. Unfortunately, the only available CT examination of the abdomen did not include pelvis. The uterine masses, were, therefore, not visualized. The patient has history of left renal mass and left renal surgery. Other prior cross-sectional imaging examinations such as CTs or MRI of the abdomen or pelvis may be present. Comparison with prior examinations would be helpful. If no prior CTs or MRIs of the pelvis are available, consider gynecological MRI for further evaluation. 2. The left ovary is visualized and appears small, appropriate for the patient's age. 3. The right ovary is not identified. No right adnexal mass. 4. Postsurgical changes in left kidney. There is mild cortical atrophy in left kidney. No recurrent mass. Dictated by: Nirali Wyatt M.D. on 02/17/2024 at 15:39 Approved by: Nirali Wyatt M.D. on 02/17/2024 at 16:11
== END ==
PROVIDERS: Family Provider Physician Assistant Medical; PCP Physician Assistant Medical; Referring Provider Obstetrics & Gynecology; Visit Provider Obstetrics & Gynecology
DX: R19.00 Intra-abdominal and pelvic swelling, mass and lump, unspecified site (principal); N85.9 Noninflammatory disorder of uterus, unspecified; N94.89 Other specified conditions associated with female genital organs and menstrual cycle; K76.0 Fatty (change of) liver, not elsewhere classified; K57.90 Diverticulosis of intestine, part unspecified, without perforation or abscess without bleeding
CPT/HCPCS: 74177; 76830; 76856; 80053; 82378; 82565; 86304; Q9967

== ENCOUNTER → 2024-03-08 12:34 | Outpatient (CLI) | payer MEDICARE, OTHER, SELFPAY ==
--- NOTE | 2024-03-08 12:37 | DI.MRI.S_ITS ---
PROCEDURE: MR PELVIS WO/W CON INDICATIONS: Fibroids TECHNIQUE: Coronal HASTE, sagittal breath-hold T2 FSE; axial T1 FSE with and without fat saturation through the pelvis. Optional long- and short-axis uterine nonbreath-hold T2 FSE through the uterus. Sagittal or axial dynamic VIBE during administration of contrast. Post-contrast axial or coronal VIBE/2-D FLASH with fat saturation from the iliac crests to the symphysis. Optional diffusion weighted imaging and ADC may be performed. COMPARISON: [facility], , MR PELVIS WO/W CON, 06/17/2023, 11:42. FINDINGS: Image quality: Excellent. Uterus: The uterus is anteverted. There is an exophytic/subserosal, multi lobulated, heterogeneously T2 profoundly hypointense mass arising from the anterior uterine body measuring 8.5 x 8.1 x 5.9 cm. There is prominent T1 hypointensity as well, and mild enhancement postcontrast. There is no restricted diffusion. The uterus also demonstrates at least two or three exophytic, possibly but angulated, right posterior fundal masses with similar intensity, predominantly very T2 hypointense. The largest measures about 2 cm in maximal diameter. Uterine morphology is otherwise normally preserved. The endometrium is thin. The junctional zone is less than 12 mm. The cervix has a normal appearance. Adnexa: Residual ovarian tissue is cranially displaced in the pelvis, atrophic, and as expected for the patient's age. No definite dominant adnexal masses or cysts. Urinary system: Bladder wall is normal in thickness. Distal ureters are non distended. Urethra appears normal in morphology. Nodes and vessels: Nonspecific, borderline enlarged right external iliac chain lymph node measures 8 mm short axis, 01/21. No other pelvic or inguinal adenopathy by size criteria. Iliac vessels are normal in size. Bowel and peritoneum: No pathologic free pelvic fluid. Inferior colon and small bowel loops are normal in caliber. Soft tissues: No inguinal hernias. No findings of pelvic floor incompetence in the absence of provocation. Bones: Marrow demonstrates normal overall signal. IMPRESSION: Calcified, subserosal/exophytic masses appear to arise from the anterior and posterior uterine fundus consistent with fibroid degeneration. Mild postcontrast enhancement is expected of benign uterine fibroids. There is a single prominent, and nonspecific right external iliac chain lymph node. No other bulky adenopathy or findings suspicious for malignancy. Atrophic residual ovarian tissue, appropriate for the patient's age. Dictated by: Marly Jj M.D. on 03/09/2024 at 0:47 Approved by: Marly Jj M.D. on 03/22/2024 at 9:46
== END ==
PROVIDERS: Family Provider Physician Assistant Medical; PCP Physician Assistant Medical; Referring Provider Obstetrics & Gynecology; Visit Provider Obstetrics & Gynecology
DX: R19.00 Intra-abdominal and pelvic swelling, mass and lump, unspecified site (principal); N94.89 Other specified conditions associated with female genital organs and menstrual cycle; R10.30 Lower abdominal pain, unspecified; R10.2 Pelvic and perineal pain; D21.9 Benign neoplasm of connective and other soft tissue, unspecified
CPT/HCPCS: 72197; A9579

== ENCOUNTER 2024-06-05 07:57 | Day surgery (SDC) | payer MEDICARE, OTHER, SELFPAY ==
[2024-06-01 09:24] VITALS: BMI 30.7
[2024-06-05] VITALS (14 sets, daily range): BP systolic 120–168; BP diastolic 56–88; PULSE 64–90; RESP 11–18; TEMP 36.2–37.2; O2SAT 90–98; BMI 30.7
--- NOTE | 2024-06-05 | PATH_ITS ---
[facility] Accession Number: [id number] No. of containers..01 Tissue . 01 Material submitted: . uterus - UTERUS,BILATERAL FALLOPIAN TUBES AND OVARIES, AND FIBROID . 01 Diagnosis: UTERUS, BILATERAL FALLOPIAN TUBES AND OVARIES AND FIBROID, HYSTERCTOMY AND BILATERAL SALPINGO-OOPHORECTOMY: Scant inactive endometrium. Benign leiomyomata with calific and degenerative changes. Bilateral ovaries with no significant pathologic alterations. Bilateral fimbriated falloipan tube with benign paratubal cysts. [facility] 06/07/2024 1452 Local . 01 Electronically signed: . Georgina Daniel MD, Pathologist NPI- [id number] . 01 Gross description: . Received in formalin with two patient identifiers and uterus, bilateral fallopian tubes, and ovaries and fibroid, is a disrupted uterus (20 grams, 4.4 cm from medial to lateral, 4.3 cm from superior to inferior, 2.6 cm from anterior to posterior), left fallopian tube (4.5 x 0.5 cm), left ovary (1 gram, 2.2 x 1.6 x 0.9 cm), right fallopian tube (4.8 x 0.4 cm), right ovary (1 gram, 2.1 x 1.3 x 0.8 cm), and multiple fragments of goodman, hard nodules (232 grams, 9.8 x 8.6 x 6.5 cm in aggregate). . The uterine serosa has a full thickness defect on the left posterior aspect (2.3 x 2.1 cm), and a ragged area on the anterior-superior aspect (1.2 x 1.2 cm), as well as several goodman, firm nodules, up to 1.9 cm in greatest dimension. The anterior is inked blue and the posterior is inked black. No endocervical canal is distinctly identified. The presumed endometrial cavity is difficult to identify due to the disruption (0.9 cm from cornu to cornu, 1.2 cm in length) with goodman, velvety endometrium that averages less than 0.1 cm. The myometrium is goodman and mildly trabecular, up to 0.7 cm in maximum thickness with several well-circumscribed nodules with areas of calcification. . Both tubes have goodman smooth serosa with cystic structures up to 0.4 cm in greatest dimension filled with cloudy serous fluid and unremarkable stellate lumens. Both ovaries have a yellow to goodman, cerebriform external surface, and the cut surfaces are yellow to goodman with no distinct lesions identified. . The fragmented nodules are goodman and with a calcified cut surface with calcifications occupying greater than 70% of the cut surface. . Internal Audit Senior Manager sections are submitted as follows: A1: Anterior full thickness section. A2: Posterior full thickness section. A3: Left fallopian tube to include one-half of bisected fimbriae and cross sections. A4: Left ovary. A5: Right fallopian tube to include one-half of bisected fimbriae and cross sections. A6: Right ovary. A7-A9: Internal Audit Senior Manager sections of nodules following decalcification. ([id number]) /MRV 06/07/[address] [place] [address] . 01 Pathologist provided ICD-10: D25.9 . 01 CPT . 436908 Specimen Comment: A courtesy copy of this report has been sent to [phone] Performed at: [address] [facility] [address], [place], [place] [id number] MD Lui Frazier MD Phone: [phone]
[2024-06-05] MEDS: LACTATED RINGERS 1,000 ML 21 ML IV ×2 (08:36→10:12)
--- NOTE | 2024-06-05 08:46 | SUR.OPER ---
Lithotomy on padded OR bed. [place] Pad Positioner under torso. Head on pillow, arms padded and tucked at sides. Legs secured in padded yellow fins stirrups.
--- NOTE | 2024-06-05 09:12 | PM.PREOP ---
Pre-operative Note Interval Note History & Physical reviewed/Exam performed by Physician: Yes Changes to H&P: No H&P completed within 30 days and has changed as indicated here:: 05/22/24
[2024-06-05] MEDS: CEFAZOLIN 2 GM/100 ML PREMIX 100 ML IV (09:44)
[2024-06-05] MEDS: BUPIVACAINE 0.5% W/ EPI (PF) 10 ML VIAL 20 ML INJ (10:17)
--- NOTE | 2024-06-05 10:20 | PM.PROC.1 ---
Procedures Date/Time Date of procedure: 06/05/24 Time of procedure: : Intubation Paralytic: succinylcholine Mg given: 100 Laryngoscope: Melvin Assist device used: other (Glidescope ) ET tube size: 7 Tube secured depth (cm): 23 Tube secured location: teeth Tube placement confirmation: visualized tube passing through cords, equal breath sounds bilaterally, no breath sounds over epigastrium and confirmation by capnometry Patient tolerated procedure: well Intubation complications: difficult intubation Additional comments: Initial DVL yielded Grade III view. Unable to pass ETT and switched to Glidesope with gliderite stylette. Intubation proceeded well enough, though ETT cuff not retaining air. Exchanged ETT over bougie atraumatically, though some scant bloody secretions noted in hypopharynx.
[2024-06-05] MEDS: ROPIVACAINE 0.2% PF 2 MG/ML 10ML AMP 20 ML INJ (10:47)
[2024-06-05] MEDS: OXYCODONE IR 5 MG TABLET PO ×2 (11:56→16:58)
[2024-06-05] MEDS: ONDANSETRON 4 MG/2 ML INJ IV (11:57)
[2024-06-05] MEDS: ACETAMINOPHEN 325 MG TABLET 650 MG PO ×3 (12:34→22:59)
[2024-06-05] MEDS: LACTATED RINGERS 1,000 ML 100 ML IV ×2 (12:35→20:58)
[2024-06-05] MEDS: KETOROLAC 30 MG/ML VIAL IV ×3 (13:14→23:04)
[2024-06-05] MEDS: DOCUSATE 100 MG CAPSULE 200 MG PO (20:52)
[2024-06-05] MEDS: TOFACITINIB 5 MG 5 EACH PO (20:52)
[2024-06-06 05:21] LABS: Add Manual Diff / Slide Review NO; Basophils Absolute Auto 0 /uL (0-100); Basophils Percent Auto 0.6 % (0-2); Eosinophils Absolute Auto 100 /uL (0-450); Eosinophils Percent Auto 0.9 % (2-4); Hematocrit 31.1 % (36-46); Hemoglobin 10.8 g/dL (12.0-16.0); Lymphocytes Absolute Auto 1000 /uL (1100-4500); Lymphocytes Percent Auto 18.8 % (25-40); Mean Corpuscular HGB Conc 34.6 % (30-36); Mean Corpuscular Volume 86.7 fL (80-100); Monocytes Absolute Auto 500 /uL (0-900); Monocytes Percent Auto 9.1 % (3-14); Neutrophils Absolute Auto 3900 /uL (1500-7000); Neutrophils Percent Auto 70.6 % (50-75); Platelet Count 242 X10^3/uL (150-400); Red Blood Cell Count 3.59 X10^6/uL (4.0-5.2); Red Cell Distribution Width 14.9 % (11.6-14.8); White Blood Cell Count 5.6 X10^3/uL (4.5-11.0)
[2024-06-06] MEDS: ACETAMINOPHEN 325 MG TABLET 650 MG PO (05:24)
[2024-06-06] MEDS: KETOROLAC 30 MG/ML VIAL IV (05:24)
[2024-06-06 05:33] LABS: BUN Creatinine Ratio 16.2 (6-22); Blood Urea Nitrogen 11 mg/dL (7-17); Calcium 8.3 mg/dL (8.4-10.2); Carbon Dioxide 26 mmol/L (22-32); Chloride 104 mmol/L (98-107); Estimated Glomerular Filt Rate > 60 mL/min (>60); Glucose 107 mg/dL (80-110); HEMOLYSIS < 15 (0-50); Potassium 3.5 mmol/L (3.4-5.1); Sodium 136 mmol/L (137-145)
[2024-06-06 08:00] VITALS: BP 152/92; PULSE 64; RESP 16; TEMP 37; O2SAT 98
--- NOTE | 2024-06-06 08:30 | P.OP_ITS ---
Operative Date/Time/Diagnoses Date of procedure: 06/05/24 Time of procedure: 11:45 Pre-op diagnosis: Enlarged fibroid uterus Pelvic pain Calcified pedunculated fibroid Post-op diagnosis: same Procedure & Clinicians Procedure: Procedures Operation Date: 06/05/24 09:15 Actual Procedure Side Surgeon p Laparoscopic Supracervical Hysterectomy with bilateral salpingo-oophorectomy Shari Temple MD Indications: 64-year-old 0 with an enlarged fibroid uterus and pelvic pain. Has had multiple imaging modalities and conclusion is this that this is a very calcified fibroid. Surgeon: Shari Temple Alliance Director: Marge Sage Anesthesia Type: General and Local Operative Notes Findings: 5 week size anteverted uterus. Pedunculated posterior fibroid measuring 3 cm Posterior subserosal fibroid measuring 5 cm Normal ovaries bilaterally Normal tubes bilaterally Normal liver Normal appendix A large 10 cm very calcified, hard, irregular edges, pedunculated fibroid coming off of the left cornua of the uterus Closure Type: primary Specimen(s): left tube & ovary, right tube & ovary and uterus (Pedunculated fibroid) Applied: catheter (To continuous drainage) Estimated blood loss (mL): 100 Blood products transfused: none Procedure in detail: The patient was taken to the operating room where she was placed in the dorsal supine position. After adequate general endotracheal anesthesia was achieved, she was placed in the dorsal lithotomy position, and prepped and draped in the usual sterile fashion. A time-out was performed. A bivalve speculum was placed into the vagina and the anterior lip of the cervix was grasped with a single- tooth tenaculum. The cervical os was sequentially dilated until the Zumi uterine manipulator could pass easily into the endometrial cavity. The single- tooth tenaculum was removed from the anterior lip of the cervix. The bivalve speculum was removed from the vagina. Attention was then turned to the abdomen where 6 cc of 0.5% Marcaine with epinephrine were injected in the umbilical fold. A 5 mm incision was made. The Veress needle was placed into the peritoneal cavity, and its placement confirmed by aspiration and drop test. The abdominal cavity was insufflated with 4.2 L of CO2. The Veress needle was removed, and a 5 mm trocar was placed without difficulty. Two other 5 mm incisions were made 4 cm lateral to the midline at the level of the umbilicus after 6 cc of 0.5% Marcaine with epinephrine were injected. Two 5 mm trocars were placed under direct visualization. The pelvis and abdomen were examined with the findings noted above. The right tube and ovary were grasped with an atraumatic grasper. Using the power seal, the infundibulopelvic ligament on the right side was cauterized and cut. The broad ligament and round ligament were cauterized and cut. The bladder flap was created using the power seal with cautery and cut prison across. The uterine arteries on the right side were extensively cauterized with the power seal. This was all repeated on the left side by moving the pedunculated fibroid coming from the left cornua off to the right side. The remainder of the bladder flap was created using the power seal. The bladder was taken down off the lower uterine segment and cervix. The Halina loop was placed 2 cm above the uterosacral ligaments. The Zumi uterine manipulator was removed from the uterus. The uterus was amputated from the cervix using the Halina loop. There was a small amount of bleeding from the left side of the cervix and this was cauterized with the power seal for hemostasis. 6 cc of 0.5% Marcaine with epinephrine were injected 2 fingerbreadths above the pubic symphysis. A 12 mm incision was made. A 12 mm trocar was placed under direct visualization. The large endobag was placed through the suprapubic trocar. The uterus, fibroid, and tubes and ovaries were placed into the bag. There were also a few small clots which were placed into the bag. The trocar was removed. The edges of the bag were brought up through the incision. Morcellation was attempted, but due to the hardness of the pedunculated fibroid with calcifications, it was not able to be hand morcellated. A decision was made to extend the fascial incision which was done bilaterally. And the bag was removed intact with the fibroid inside as well as the uterus. The fascia was reapproximated with 0 Vicryl in a running fashion. The abdomen was re- insufflated. The pelvis was copiously irrigated with warm normal saline. There was no bleeding noted. The instruments were removed from the abdomen. The CO2 was allowed to escape. The suprapubic incision was irrigated with warm normal saline. Four simple interrupted sutures of 3-0 Vicryl were placed in the subcutaneous layer to reapproximate. All of the incisions were closed with 4-0 Monocryl in a subcuticular fashion. Steri-Strips were placed. Allevyn dressings were placed over the laparoscopy incisions. A small Aquacel was placed over the suprapubic incision. Sponge, lap, and instrument counts were correct x2. The patient tolerated the procedure well, and was taken to PACU in stable condition. Complications: none Post-operative Condition: stable Disposition: PACU Plan for aftercare: To acute care after recovery
--- NOTE | 2024-06-06 08:39 | P.DS_ITS ---
History of Present Illness History of Present Illness Date Patient Seen: 06/06/24 Time Patient Seen: 08:40 Chief complaint: Laparoscopic Supracervical Hysterectomy Narrative: Patient is a 64-year-old 0 who presented on June 05, 2024 for a scheduled laparoscopic supracervical hysterectomy with bilateral salpingo- oophorectomy. She underwent this procedure with addition of a mini-laparotomy in order to remove a very calcified pedunculated fibroid, which could not be morcellated. Her postoperative course was unremarkable. She was tolerating a diet on postop day # 0. Her pain is well controlled. She has voided without the catheter. No nausea or vomiting. She is ambulating without assistance. Discharge Providers Provider Discharge Date: 06/06/24 Primary care physician: Eri Lilly PA-C Discharge provider: Shari Temple MD Summary Hospital Course Discharge Diagnosis: Enlarged fibroid uterus Pelvic pain Laparoscopic supracervical hysterectomy with mini-laparotomy in order to remove fibroid Bilateral salpingo-oophorectomy Hospital Course: Patient is a 64-year-old 0 who presented on June 05, 2024 for a scheduled laparoscopic supracervical hysterectomy with bilateral salpingo- oophorectomy. She underwent this procedure with addition of a mini-laparotomy in order to remove a very calcified pedunculated fibroid, which could not be morcellated. Her postoperative course was unremarkable. She was tolerating a diet on postop day # 0. Her pain is well controlled. She has voided without the catheter. No nausea or vomiting. She is ambulating without assistance. Status at Discharge Cognitive/behavioral status at discharge: oriented Functional status at discharge: independent ambulation Overall status at discharge: patient is progressing back to baseline Time Spent with Patient Time spent: Less than 30 minutes Exam Vital Signs (past 8 hours): - 06/06/24 04:00 06/06/24 08:00 Temperature 98.6 F Pulse Rate 64 Respiratory Rate 16 Blood Pressure 152/92 H Pulse Oximetry 98 Oxygen Delivery Method Nasal Cannula Oxygen Flow Rate 1 Fraction of Inspired Oxygen 24 Fraction of Inspired Oxygen 24 Oxygen Delivery Method Nasal Cannula Oxygen Flow Rate 1 Narrative Exam Narrative: Generally: Patient is sitting up in bedside chair, no acute distress Lungs: Clear to auscultation bilaterally Cardiovascular: Regular rate and rhythm Abdomen: Soft and flat. Incisions: Clean dry and intact with dressings Extremities: Negative Homans, no edema Objective Labs 06/06/24 04:40 06/06/24 04:40 Labs: Laboratory Results - last 24 hr 06/06/24 04:40 WBC 5.6 RBC 3.59 L Hgb 10.8 L Hct 31.1 L MCV 86.7 MCH 30.0 MCHC 34.6 RDW 14.9 H Plt Count 242 Neut % (Auto) 70.6 Lymph % (Auto) 18.8 L Hodgeman % (Auto) 9.1 Eos % (Auto) 0.9 L Baso % (Auto) 0.6 Neut # (Auto) 3900 Lymph # (Auto) 1000 L Hodgeman # (Auto) 500 Eos # (Auto) 100 Baso # (Auto) 0 Sodium 136 L Potassium 3.5 Chloride 104 Carbon Dioxide 26 BUN 11 Creatinine 0.68 Estimated GFR > 60 BUN/Creatinine Ratio 16.2 Glucose 107 Calcium 8.3 L PFSH Medical History (Updated 06/05/24 @ 09:10 by Shari Temple MD) Psoriasis (~1993) Osteopenia (~2014) Mumps Measles Chicken pox Fibroids Cancer of kidney (~2014) Hypertension (~2013) Osteoporosis (~2022) Mass of uterine adnexa Pelvic pain Elevated lipids Diabetes (~2019) Surgical History (Updated 03/27/24 @ 19:42 by Eve Sethi) Anesthesia History of partial nephrectomy (~11/2015) Status post arthroscopy (~02/1995) Family History (Updated 03/27/24 @ 19:45 by Eve Sethi) Father Melanoma Basal cell carcinoma Heart disease High cholesterol Grandfather Hypertension Stroke Mother Hypertension Deaf Cancer Congestive heart failure High cholesterol Grandmother Cancer Sister Age: 69 Melanoma Diabetes mellitus Hypertension High cholesterol Sister Age: 68 Melanoma Sarcoidosis Grandmother Pneumonia Social History household members: none Smoking Status: Never smoker alcohol intake: current Discharge Assessment & Plan Assessment and Plan Assessment: Postop day # 1 status post laparoscopic supracervical hysterectomy with mini- laparotomy in order to remove fibroid Patient doing very well Plan of Treatment: Discharge to home Follow-up in 2 weeks Patient to call with fever, chills, redness or drainage around the incisions, or bleeding vaginally more than spotting to light Discharge Plan Discharge Plan Patient Disposition: Home Provider Discharge Comment: Call with fever, chills, redness or drainage around the incisions, or bleeding vaginally more than spotting to light Tylenol 650 mg every 6 hours Discharge orders & Medications Discharge Orders: Discharge (Order); Ordered 06/06/24 Ordered By: Shari Temple Prescriptions: New oxycodone 5 mg tablet 5 mg PO Q6H PRN (Reason: pain) Qty: 20 0RF Continued Vitamin D3 4,000 UNIT capsule 4,000 u PO Q DAY Qty: 0 multivitamin [Multiple Vitamins] 1 EACH tablet 1 tab PO QDAY Qty: 0 hydrochlorothiazide 25 mg tablet See Rx Instructions .ROUTE .COMPLEX Qty: 90 2RF Dose Instruction: TAKE ONE TABLET BY MOUTH EVERY DAY Rx Instructions: TAKE ONE TABLET BY MOUTH EVERY DAY losartan 50 mg tablet See Rx Instructions .ROUTE .COMPLEX Qty: 180 3RF Dose Instruction: TAKE 1 AND (1/2) TABLETS BY MOUTH ONCE DAILY Rx Instructions: TAKE 2 TABLETS BY MOUTH ONCE DAILY metformin 500 mg tablet See Rx Instructions .ROUTE .COMPLEX Qty: 90 3RF Dose Instruction: TAKE ONE TABLET BY MOUTH EVERY DAY Rx Instructions: TAKE ONE TABLET BY MOUTH EVERY DAY atorvastatin 40 mg tablet 60 mg PO DAILY Rx Instructions: Take 1 (40mg) tablet in addition to 1 (20mg) tablet, totaling 60mg daily magnesium 400 cap PO DAILY Xeljanz 5 mg tablet 5 mg PO BID alendronate [Fosamax] 70 mg tablet 70 mg PO QWEEK Qty: 16 2RF nitrofurantoin monohyd/m-cryst [Macrobid] 100 mg capsule 100 mg PO BID Qty: 10 0RF Rx Instructions: must administer with a meal/food Follow up/Referrals: Shari Temple MD [Physician] - (Patient has postoperative appointment already scheduled on 06/16/24 at 16[facility]) Diet/Activity/Treatments Diet: Regular Activity: No heavy lifting for the first 2 weeks. Nothing more than a gal of milk Walking is always safe Skin/Wound/Dressing Care Report to your healthcare provider any signs of infection, such as:: chills, fever, increased pain, unusual drainage and unusual redness Dressing: Remove outer pink dressings with attached gauze on morning after a shower May shower daily Remove lower brown dressing next Wednesday morning Leave Steri-Strips in place for 2 weeks or until they fall off Visit Report/Discharge Packet Instructions: DI for Hysterectomy, DI for Laparoscopy, DI for Prescription Opioid Use Stand Alone Forms: Patient Portal/API, Surgery Discharge Discharge Data Primary Care Provider: Eri Lilly Attending Provider: Shari Temple VTE Deep Vein Thrombosis/Pulmonary Embolism Present on Admission: No
[2024-06-06 08:57] VITALS: BP 152/92; PULSE 63
[2024-06-06] MEDS: METFORMIN HCL 500 MG TABLET PO (08:57)
[2024-06-06] MEDS: LOSARTAN 50 MG TABLET 100 MG PO (08:57)
[2024-06-06] MEDS: DOCUSATE 100 MG CAPSULE 200 MG PO (08:58)
[2024-06-06] MEDS: ATORVASTATIN 20 MG TABLET 60 MG PO (08:58)
[2024-06-06] MEDS: hydroCHLOROthiazide 25 MG TABLET PO (08:58)
[2024-06-06] MEDS: OXYCODONE IR 5 MG TABLET PO (09:03)
[2024-06-06] MEDS: TOFACITINIB 5 MG 5 EACH PO (09:08)
--- NOTE | 2024-06-06 10:31 | CM.DANOTE ---
Initial DCP Assessment Visit Note Reviewed EMR and team rounds for status updates. Met with pt and her friend at bedside to introduce self and role, pt was found to be alert/oriented, dressed, and preparing for d/c. Pt lives independently in her own home at baseline on [address] [facility]. Her friend will be transporting her home. No CM assistance or resource needs are identified at this time. Payor: Medicare Attending: Dr. Temple Pt is a 64 year-old F post-op day 1 from a planned lap supracervical hysterectomy with bilateral salpingo-oophorectomy. Pt had a hx of worsening pelvic and perineal pain, as well as a calcified leiomyoma removal from her uterus. Pt did well with no post-op concerns, and is improving towards her baseline. DCP confirmed that they do have a reservation for her return home, which they plan to stay the night in a hotel tonight, then return to [place] tomorrow. [employer] declined their request to have a ferry pass for tomorrow, as she is discharging today. Pt/friend expressed understanding and no further needs were indicated for assistance. Discharge Planning/Care Management Advanced directive, confirm from FAMILY Start: 06/05/24 12:31 Freq: Q24H Status: Active Protocol: Document 06/05/24 12:31 MM (Rec: 06/05/24 13:52 MM [id number]) Advance Directive, confirm on record Time 13:51 Person contacted pt Copy received No CM Discharge Assessment Start: 06/06/24 10:29 Freq: Status: Active Protocol: Document 06/06/24 10:30 DPL (Rec: 06/06/24 10:31 DPL [id number]) Discharge Planning Assessment Assigned Regulatory Coordinator SARAHY Thomas Advance Directives? Yes Advance Directives on File No History Provided By Patient,Medical Record Has Patient been admitted in last 30 No days? Prior Living Arrangements House Household Members none Type of transporation used prior to Drives own vehicle admit Independent with ADL's Yes Is patient alert and oriented? Yes Caregiver for Another No Comment No identified home d/c needs at this time. Barriers to Discharge No Discharge Plan Home Transportation Arrangement Friend Referrals Initiated None needed Whiteboard Updated in Patient Room with Yes name and ext. # of Regulatory Coordinator Review Status In Process Please Provide Date Initial DC 06/06/24 Assessment Was Performed Pre-Anesthesia Assessment Start: 06/01/24 09:24 Freq: Status: Active Protocol: Document 06/01/24 09:24 LB (Rec: 06/01/24 09:37 LB [id number]) Pre-Anesthesia Assessment PAC Comment Chart review only. Patient Information Reviewed Via Chart Review Diagnostic Results BMP/CMP,Urinalysis Comment 02/17/2024 & 04/12/2024 at . Primary Care Provider Eri Lilly Medical Clearance Received Not Applicable Seen Specialist in Last 12 Months Yes Specialist Seen Pit Supervisor Primary Language Andorran Preferred Language Andorran Hand Upper And Bottom Lacer Required No Height 165.1 cm Weight 83.915 kg Body Mass Index (BMI) 30.7 Anesthesia Review Requested No Ballet Teacher No Smoking Status Never smoker Is patient on oxygen? No Hx Sleep Apnea No CPAP/BIPAP use not prescribed Currently Taking a Beta Ivy No Anti-Coagulant Therapy No Cardiac Clearance Received Not Applicable Chronic UTI UTI 04/12/2024 Diabetes Yes HgbA1C 4.9 Date 09/01/23 Patient No Lactating No Emergency Contact Name Ilda Branch - Emergency Contact
== END 2024-06-06 10:48 | disposition home or self-care (01) ==
LOC: OR 07:59 → AC 08:00
PROVIDERS: Family Provider Physician Assistant Medical; PCP Physician Assistant Medical; Referring Provider Obstetrics & Gynecology; Visit Provider Obstetrics & Gynecology
PROC: 0UT94ZL Resection of Uterus, Supracervical, Percutaneous Endoscopic Approach (ICD-10-PCS; CPT 58542; principal; 2024-06-05 09:15)
DX: D25.9 Leiomyoma of uterus, unspecified (principal); N83.8 Other noninflammatory disorders of ovary, fallopian tube and broad ligament
CPT/HCPCS: 58542; 36415; 80048; 82962; 85025; J0330; J0690; J1170; J1885; J2405; J2704; J2795; J3010

== ENCOUNTER → 2024-07-18 15:56 | Outpatient (CLI) | payer MEDICARE, OTHER, SELFPAY ==
[2024-06-05 08:16] VITALS: BMI 30.7
--- NOTE | 2024-07-18 15:57 | DI.MG.S_ITS ---
BILATERAL DIGITAL SCREENING MAMMOGRAM 3D/2D WITH CAD: 07/18/2024 CLINICAL: Routine screening. Family history of breast cancer. Comparison is made to exams dated: 06/17/2023 mammogram, 05/21/2022 mammogram, 02/19/2021 mammogram, 06/28/2023 mammogram, and 07/27/2018 mammogram - [facility]. There are scattered areas of fibroglandular density (category b / 25%-50% glandular tissue). Current study was also evaluated with a Computer Aided Detection (CAD) system. No significant masses, calcifications, or other findings are seen in either breast. There has been no significant interval change. IMPRESSION: NEGATIVE There is no mammographic evidence of malignancy. A 1 year screening mammogram is recommended. Based on the Tyrer Cuzick model (a risk assessment model) the patient's lifetime risk is 8.3% and her 10 year risk is 4.0%. According to the ACR, ACS, and NCCN guidelines, an annual breast MRI exam along with mammogram is recommended if the patient's lifetime risk is 20% or greater. This exam was interpreted at Station ID: [id number]. NOTE: For mammograms, a report in lay terms will be sent to the patient. Approximately 15% of breast malignancies will not be visualized mammographically. In the management of a palpable breast mass, a negative mammogram must not discourage biopsy of a clinically suspicious lesion. Electronically Signed By: Nerissa De La Cruz M.D., Ph.D. otilia/jayla:07/19/2024 14:15:15 letter sent: Normal Exam ACR BI-RADS Category 1: Negative
== END ==
PROVIDERS: Family Provider Physician Assistant Medical; PCP Physician Assistant Medical; Referring Provider Physician Assistant Medical; Visit Provider Physician Assistant Medical
DX: Z12.31 Encounter for screening mammogram for malignant neoplasm of breast (principal); Z80.3 Family history of malignant neoplasm of breast
CPT/HCPCS: 77063; 77067

== ENCOUNTER → 2024-10-27 10:08 | Outpatient (CLI) | payer MEDICARE, OTHER, SELFPAY ==
[2024-06-05 08:16] VITALS: BMI 30.7
[2024-10-27 19:06] LABS: Alanine Aminotransferase 42 IU/L (<35); Albumin 4.6 g/dL (3.5-5.0); Albumin Globulin Ratio 1.4 (1.0-2.8); Alkaline Phosphatase 81 U/L (38-126); Aspartate Aminotransferase 35 IU/L (14-36); BUN Creatinine Ratio 21.7 (6-22); Bilirubin Total 1.5 mg/dL (0.2-1.3); Blood Urea Nitrogen 13 mg/dL (7-17); Calcium 9.7 mg/dL (8.4-10.2); Carbon Dioxide 20 mmol/L (22-32); Chloride 104 mmol/L (98-107); Cholesterol 205 mg/dL (140-199); Estimated Glomerular Filt Rate > 60 mL/min (>60); Globulin 3.2 g/dL (1.7-4.1); Glucose 123 mg/dL (80-110); HDL Cholesterol 62 mg/dL (40-60); HEMOLYSIS < 15 (0-50); LDL Cholesterol Calculated 111 mg/dL (<100); Potassium 4.5 mmol/L (3.4-5.1); Sodium 136 mmol/L (137-145); Total Protein 7.8 g/dL (6.3-8.2); Triglycerides 160 mg/dL (35-150)
[2024-10-27 19:31] LABS: Add Manual Diff / Slide Review NO; Basophils Absolute Auto 100 /uL (0-100); Basophils Percent Auto 1.3 % (0-2); Eosinophils Absolute Auto 100 /uL (0-450); Hematocrit 38.8 % (36-46); Hemoglobin 13.5 g/dL (12.0-16.0); Lymphocytes Absolute Auto 1100 /uL (1100-4500); Lymphocytes Percent Auto 18.4 % (25-40); Mean Corpuscular HGB Conc 34.7 % (30-36); Mean Corpuscular Hemoglobin 29.7 PG (26-34); Mean Corpuscular Volume 85.7 fL (80-100); Monocytes Absolute Auto 500 /uL (0-900); Monocytes Percent Auto 8.4 % (3-14); Neutrophils Absolute Auto 4100 /uL (1500-7000); Neutrophils Percent Auto 70.9 % (50-75); Platelet Count 292 X10^3/uL (150-400); Red Blood Cell Count 4.53 X10^6/uL (4.0-5.2); Red Cell Distribution Width 14.7 % (11.6-14.8); White Blood Cell Count 5.8 X10^3/uL (4.5-11.0)
[2024-10-27 19:35] LABS: Thyroid Stimulating Hormone 1.15 uIU/mL (0.47-4.68)
[2024-10-27 20:06] LABS: Vitamin D 25 Hydroxy (D3) 41.2 ng/mL (30.0-100.0)
[2024-10-28 11:36] LABS: Calcium 9.4 mg/dL (8.7-10.3); Parathyroid Hormone, Intact 43 pg/mL (15-65)
== END ==
PROVIDERS: Family Provider Physician Assistant Medical; PCP Family Medicine; Visit Provider Family Medicine
DX: I10 Essential (primary) hypertension (principal); M81.0 Age-related osteoporosis without current pathological fracture; M05.79 Rheumatoid arthritis with rheumatoid factor of multiple sites without organ or systems involvement; E83.52 Hypercalcemia; E78.2 Mixed hyperlipidemia
CPT/HCPCS: 80053; 80061; 82306; 82310; 83970; 84443; 85025

== ENCOUNTER → 2024-11-09 11:47 | Outpatient (CLI) | payer MEDICARE, OTHER, SELFPAY ==
[2024-06-05 08:16] VITALS: BMI 30.7
[2024-11-09 21:45] LABS: Microalbumin Urine Random < 0.6 mg/dL (0-1.6)
== END ==
PROVIDERS: Family Provider Physician Assistant Medical; PCP Family Medicine; Visit Provider Family Medicine
DX: E11.9 Type 2 diabetes mellitus without complications (principal)
CPT/HCPCS: 82043; 82570

== ENCOUNTER → 2024-12-27 12:27 | Outpatient (CLI) | payer MEDICARE, OTHER, SELFPAY ==
[2024-06-05 08:16] VITALS: BMI 30.7
[2024-12-27 18:54] LABS: Blood Urea Nitrogen 15 mg/dL (7-17); Calcium 9.1 mg/dL (8.4-10.2); Carbon Dioxide 25 mmol/L (22-32); Chloride 100 mmol/L (98-107); Estimated Glomerular Filt Rate > 60 mL/min (>60); Glucose 183 mg/dL (80-110); HEMOLYSIS 24 (0-50); Potassium 3.8 mmol/L (3.4-5.1); Sodium 135 mmol/L (137-145)
[2024-12-27 19:02] LABS: Hemoglobin A1C% w Est Avg Glu 5.2 % (4.0-6.0)
[2024-12-27 19:07] LABS: LDL Cholesterol Direct 90 mg/dL (<100)
== END ==
PROVIDERS: Family Provider Physician Assistant Medical; PCP Family Medicine; Visit Provider Family Medicine
DX: E11.9 Type 2 diabetes mellitus without complications (principal); E78.2 Mixed hyperlipidemia; I10 Essential (primary) hypertension
CPT/HCPCS: 80048; 83036; 83721

== ENCOUNTER 2025-01-03 07:09 | Day surgery (SDC) | payer MEDICARE, OTHER, SELFPAY ==
[2024-06-05 08:16] VITALS: BMI 30.7
--- NOTE | 2025-01-03 | PATH_ITS ---
[facility] Accession Number: [id number] No. of containers..01 Tissue . 01 Material submitted: . body - 60 POLYP . 01 Diagnosis: COLON POLYP AT 60 CM, BIOPSY: Inflammatory polyp. MRV 01/08/2025 1507 Local . 01 Electronically signed: . Georgina Daniel MD, Pathologist NPI- [id number] . 01 Gross description: . 60 POLYP: Received in formalin is 1 fragment(s) of goodman, soft tissue measuring 0.5 x 0.5 x 0.4 cm submitted entirely in 1 cassette(s) /TAVO 01/05/2025 0037 Local . 01 Pathologist provided ICD-10: K51.40 . 01 CPT . 250258 Specimen Comment: A courtesy copy of this report has been sent to [phone] Performed at: [address] [facility] [address], [place], [place] [id number] MD Lui Frazier MD Phone: [phone]
[2025-01-03 07:26] VITALS: BP 162/93; PULSE 91; RESP 16; TEMP 36.2; O2SAT 98
[2025-01-03] MEDS: LACTATED RINGERS 1,000 ML 84 ML IV (07:35)
--- NOTE | 2025-01-03 08:22 | P.HP_ITS ---
History of Present Illness History of Present Illness Date Patient Seen: 01/03/25 Chief complaint: Colonoscopy Narrative: Seven year follow-up screening colonoscopy with a grandparent history of colon cancer [facility] Medical History (Updated 01/01/25 @ 09:13 by Eri Plata MD) Psoriasis (~1993) Osteopenia (~2014) Mumps Measles Chicken pox Fibroids Cancer of kidney (~2014) Hypertension (~2013) Osteoporosis (~2022) Mass of uterine adnexa Surgical History (Updated 03/27/24 @ 19:42 by Eve Sethi) Anesthesia History of partial nephrectomy (~11/2015) Status post arthroscopy (~02/1995) Family History (Updated 03/27/24 @ 19:45 by Eve Sethi) Father Melanoma Basal cell carcinoma Heart disease High cholesterol Grandfather Hypertension Stroke Mother Hypertension Deaf Cancer Congestive heart failure High cholesterol Grandmother Cancer Sister Age: 70 Melanoma Diabetes mellitus Hypertension High cholesterol Sister Age: 69 Melanoma Sarcoidosis Grandmother Pneumonia Social History household members: none Smoking Status: Never smoker alcohol intake: current Meds Home Medications and Allergies Home Medications Medication Instructions Recorded Confirmed Type cholecalciferol (vitamin D3) 100 4,000 u PO Q DAY ##0 08/26/17 01/01/25 History mcg (4,000 unit) capsule (Vitamin D3) multivitamin (Multiple Vitamins 1 tab PO QDAY ##0 08/26/17 01/01/25 History tablet) magnesium 400 cap PO DAILY 04/03/21 01/01/25 History tofacitinib 5 mg tablet (Xeljanz) 5 mg PO BID Rheumatoid Arthritis 08/13/22 01/03/25 History alendronate 70 mg tablet (Fosamax) 70 mg PO QWEEK #16 tabs 09/15/23 01/03/25 Rx estradiol 0.025 mg/24 hr 1 patch transdermal 2XW #8 ea 07/19/24 01/01/25 Rx semiweekly transdermal patch metformin 500 mg tablet 500 mg PO BID diabetes #180 tabs 09/22/24 01/03/25 Rx calcipotriene 0.005 % topical 1 applic topical BID 11/27/24 01/01/25 History ointment clobetasol 0.05 % scalp solution topical 11/27/24 01/01/25 History clobetasol 0.05 % shampoo topical 11/27/24 01/01/25 History clobetasol 0.05 % topical cream 1 applic topical BID 11/27/24 01/01/25 History sodium,potassium,mag sulfates 17.5 See Rx Instructions PO .COMPLEX 11/29/24 01/01/25 Rx gram-3.13 gram-1.6 gram oral soln #354 mL (Suprep Bowel Prep Kit) chlorthalidone 25 mg tablet 25 mg PO QAM for blood pressure 12/25/24 01/03/25 Rx #90 tabs valsartan 160 mg tablet 160 mg PO DAILY for blood pressure 12/25/24 01/03/25 Rx #90 tabs atorvastatin 20 mg tablet 20 mg PO BEDTIME 40mg + 20mg tab 01/01/25 01/03/25 Rx cholesterol. prevents heart attack #90 tabs atorvastatin 40 mg tablet 40 mg PO BEDTIME 40 mg + 20 mg 01/01/25 01/03/25 Rx cholesterol. prevents stroke. #90 tabs omeprazole 20 mg capsule,delayed 20 mg PO DAILY reflux/protects 01/01/25 01/01/25 Rx release stomach from fosamax. #90 caps Allergies Allergy/AdvReac Type Severity Reaction Status Date / Time morphine [MORPHINE] AdvReac Unknown Family Verified 01/03/25 07:22 history of Anaphyactic Shock Exam Vital Signs (past 8 hours): - 01/03/25 07:26 Temperature 97.2 F L Pulse Rate 91 H Respiratory Rate 16 Blood Pressure 162/93 H Pulse Oximetry 98 Oxygen Delivery Method Room Air Oxygen Delivery Method Room Air Narrative Exam Narrative: Oropharynx free of lesions Chest clear to auscultation percussion Cardiac exam reveals no S3 or murmur Assessment & Plan Assessment & Plan narrative: Family history of colon cancer in a grandparent need for follow-up colonoscopy. Risks, benefits, alternatives have been explained. Time-Based Coding :: [TOTAL MINUTES] spent with patient and on the chart (including review of chart, obtaining history, exam, reviewing outside data, placing orders, documenting exam and treatment plan, and counseling patient) on [DATE]. PROFEE Office Assistance Document charge(s): No
--- NOTE | 2025-01-03 08:24 | PM.OP.COLON ---
Operative Date/Time/Diagnoses Date of procedure: 01/03/25 Pre-op diagnosis: See indication and findings Procedure & Clinicians Study performed: Colonoscopy Same procedure as scheduled: Yes Indications: Family history of colon cancer second-degree relative Surgeon: Lissette Oh Procedure Notes Procedure in detail: After informed consent was obtained the patient was placed in left lateral decubitus position. The video colonoscope was introduced the rectum slowly advanced cecum. Preparation was good. On slow withdrawal mucosa was carefully examined. The scope was removed. The patient tolerated procedure well. Blood loss none Complications none Sedation mac Findings 1. 1 cm pedunculated polyp at 60 cm cold snared and removed completely 2. Otherwise negative colonoscopy to cecum We will be in touch regarding pathology but will need follow-up colonoscopy in 5 years
[2025-01-03 08:50] VITALS: BP 95/54; PULSE 64; RESP 30; TEMP 36.2; O2SAT 94
[2025-01-03 08:55] VITALS: BP 97/58; PULSE 59; RESP 16; O2SAT 95
[2025-01-03 09:00] VITALS: BP 108/70; PULSE 68; RESP 12; O2SAT 96
== END 2025-01-03 09:19 | disposition home or self-care (01) ==
PROVIDERS: Family Provider Physician Assistant Medical; PCP Family Medicine; Referring Provider Internal Medicine Gastroenterology; Visit Provider Internal Medicine Gastroenterology
PROC: 0DJD8ZZ Inspection of Lower Intestinal Tract, Via Natural or Artificial Opening Endoscopic (ICD-10-PCS; CPT 45378; principal; 2025-01-03 08:30)
DX: Z12.11 Encounter for screening for malignant neoplasm of colon (principal); K51.40 Inflammatory polyps of colon without complications
CPT/HCPCS: 45385; J2704

== ENCOUNTER 2025-04-19 08:15 | Outpatient (RCR) | payer MEDICARE, OTHER, SELFPAY ==
[2024-06-05 08:16] VITALS: BMI 30.7
--- NOTE | 2025-02-27 16:10 | PT.OIE ---
Addendum entered and electronically signed by Twila Huynh, PT 02/27/25 17:06: Addition of Biofeedback to treatment plan. Original Note: Current Diagnoses Other female genital prolapse (02/27/25) Unspecified urinary incontinence (02/27/25) Past Medical History (Last Updated 01/09/25 @ 08:58 by VICENTE Baugh) Cancer of kidney (~2014) Chicken pox Fibroids Hypertension (~2013) Mass of uterine adnexa Measles Mumps Osteopenia (~2014) Osteoporosis (~2022) Pelvic floor weakness Psoriasis (~1993) Well woman exam with routine gynecological exam Past Surgical History (Last Updated 03/27/24 @ 19:42 by Eve Sethi) Anesthesia History of partial nephrectomy (~11/2015) Status post arthroscopy (~02/1995) Visit Care Team Role Provider Type Eri Plata MD Family Provider Physician Primary Care Provider Specialty: Family Practice Address: [address] [place] [address], [facility] Email: [email or web address] VICENTE Baugh Attending Provider [employer] Referring Provider Specialty: Medical Address: [address] [place] [address], [facility] Email: [email or web address] Physical Therapy Initial Evaluation PT-OP-A Visit Information Start: 02/16/25 10:27 Freq: Status: Active Protocol: Document 02/27/25 13:45 LRN (Rec: 02/27/25 14:55 LRN Laptop) Out-Patient Physical Therapy Visit Information Visit Information Visit Type Initial Evaluation Visit Start Time 13:45 Visit Stop Time 14:30 Visit Number 1 (03/29/25 PN) Evaluation Information Evaluation Date 02/27/25 Precautions Precautions Rheumatoid Arthritis (notable in low back); Hysterectomy 05/2024; Partial L nephrectomy; HBP controlled by meds; Diabetes II controlled by meds, diet, exercise; Osteoporosis of L hip. PT-OP-B Current Condition Start: 02/16/25 10:27 Freq: Status: Active Protocol: Document 02/27/25 13:45 LRN (Rec: 02/27/25 14:55 LRN Laptop) Current Condition History of Current Condition Onset Date 05/2024 Current Complaints Incontinence wearing a #3 poise pad History of Current Hysterectomy in May [address] Temple due to fibroid Condition and pelvic pain (no longer has pelvic pain), and now has to wear (before hyste wore pad only during the day poise), now wears a poise #3 pad daytime, #2 pad nighttime (previously no pad at nighttime). Urination doesn't come out as quickly and has a couple of instances of urgency (on diuretic). If doesn't pay attention and waits longer to urinate then can't make it to bathroom without leaking. Urinary leakage interferes with social activities. Must know where all the bathrooms are and withholds fluids depending on activities of the day. Foot drop on L LE (2021), now has a little bit of a big toe drop. 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 Treatment Goals Patient/Caregiver Pt goals: Goals -Decrease urinary leakage with urgency to be able to make it to the toilet 80% of time (LTG: make it to toilet 100% of time). -Not have to use a urinary pad of more thickness than what she is using now (LTG: return to prior level of no pad at nighttime and #2 pad during the day). -Pt will reduce the times getting up to urinate through the night from 2x to 1x/night. -Reduce leakage when bending over. Prior Functional Status Baseline Function- Small amt of leakage, wearing 1 Poise pad during day. Work/School Current Functional Impairments (Reported) Functional Medium : Wearing 3 pad during day and 2 pad during the Limitations- ADL's night. Leak if waiting too long, and bending over, and overnight, and walking to toilet. Must monitor location of bathrooms and fluid intake. Personal Factors Other Personal Lives [facility]. Factors That May Hyste 05/2024, Effect Therapy/ Rheumatoid Arthritis, Recovery Diabetes II controlled by meds, diet, exercise Osteoporosis of L hip. PT-OP-C Subjective Start: 02/16/25 10:27 Freq: Status: Active Protocol: Document 02/27/25 13:45 LRN (Rec: 02/27/25 14:55 LRN Laptop) OP-PT Subjective Patient Comments Patient Comments Pt c/o twinges of L sciatic pain when lying in supine, and L hip pain after lying supine and sidelie. Patient Questionnaires Pelvic Pain and Urgency/Frequency Patient Symptom Scale Pelvic Pain Score 6 OP-PT Pain Assessment Pain Assessment Grid Paper Pain Yes Assessment Grid Completed Location Kalyan anterior/lateral/L ankle Intensity 3 Scale Used Numeric (0 - 10) Hips Pain Location Lateral hips Details Intensity 3 Scale Used Numeric (0 - 10) PT-OP-I Pelvic Floor Start: 02/16/25 10:27 Freq: Status: Active Protocol: Document 02/27/25 13:45 LRN (Rec: 02/27/25 15:53 LRN Laptop) Pelvic Floor Assessment Pelvic Clock Pelvic Clock Other Tightness around the clock without pain. Prolapse Prolapse Comments Not able to assess, vaginal opening too small to visualize. Bladder felt with internal assessment. Contraction Ability Voluntary Weak Contraction Voluntary Relaxation Weak Manual Muscle 2 Testing Left Manual Muscle 1 Testing Right Manual Muscle 2 Testing Anterior Manual Muscle 3 Testing Posterior Number of Quick 7 Contractions In 10 Seconds Comments Pelvic Floor Endurance: Pt had gradual loss of strength that was Comments not perceived manually. PT-OP-J Posture/Palpation/Skin Start: 02/16/25 10:27 Freq: Status: Active Protocol: Document 02/27/25 13:45 LRN (Rec: 02/27/25 14:55 LRN Laptop) Posture Evaluation Position Standing Head/C-Spine Posture Side Bent Right Comments Posture Comments L shoulder high, AB arms, elbows felxed, IR forearms, R AB thumb, fingers flexed, L ankle inverts (valgus), Dowagers hump, flat Upper t//s, increased lordosis, anter Pelvic tilt, knees slightly flexed, L shoulder high, head slight SB R, PT-OP-K Range of Motion Start: 02/16/25 10:27 Freq: Status: Active Protocol: Document 02/27/25 13:45 LRN (Rec: 02/27/25 14:55 LRN Laptop) Lumbar Spine Range of Motion Lumbar Spine Active Degrees Testing Position Standing Flexion 87 Extension 3 Rotation Left 25 Rotation Right 25 Lateral Flexion Left 20 Lateral Flexion 18 Right Hip Goniometric Range of Motion Hip Right Passive Testing Position Supine Internal Rotation 20 External Rotation 55 Left Passive Testing Position Supine Internal Rotation 45 External Rotation 30 PT-OP-M Strength Start: 02/16/25 10:27 Freq: Status: Active Protocol: Document 02/27/25 13:45 LRN (Rec: 02/27/25 14:55 LRN Laptop) Hip Strength Hip Manual Muscle Testing Right Flexion (L2) 5 Normal Abduction 5 Normal Adduction 5 Normal External Rotation 5 Normal Internal Rotation 4 Good Comments Sitting hip IR MMT caused pain in the hip; therefore MMT of hip extension deferred. Left External Rotation 5 Normal Internal Rotation 4 Good Comments Sitting hip IR MMT caused pain in the hip; therefore MMT of hip extension deferred. PT-OP-Q Treatments Start: 02/16/25 10:27 Freq: Status: Active Protocol: Document 02/27/25 13:45 LRN (Rec: 02/27/25 14:55 LRN Laptop) Therapeutic Exercises Supine Exercises Kegels Supine Exercise Name HEP issued (see self care) Self-Care/Home Management Treatment Education Other Education Discussed results of evaluation, goals, treatment, and plan of care (POC) with pt; pt agreeable to evaluation, goals, treatment and POC. Discussed and educated pt in specifics for completion of in use of Bladder Diary and I/S in tracking for 1 week. Activities Self-Care/Home Issued & reviewed HEP: Kegel ex's and discussed Management exercise of Quick Flicks, Long Holds and Aggravators. Activities PT-OP-T Assessment and Plan Start: 02/16/25 10:27 Freq: Status: Active Protocol: Document 02/27/25 13:45 LRN (Rec: 02/27/25 14:55 LRN Laptop) Physical Therapy Assessment Rehab Potential Rehabilitation Good Potential Evaluation Complexity Number of Personal 0 Factors/ Comorbidities Number of Body 4 or More Systems Impaired Clinical Evolving Presentation at Evaluation Impairments Impairments Activity Tolerance,Functional Activities,Pain,Posture, ROM,Soft Tissue Mobility,Strength,Transfers Goals Four Impairment Urge urinary leakage when delaying voiding with an urge . Short Term Goal (STG Pt will be educated in urge deference technique to be ) able to delay urination and decrease urinary leakage. STG Duration 04/12/25 Data Integrity Specialist Goal (LTG) Decrease urinary leakage with urgency to be able to make it to toilet 80%-100% of time. LTG Duration 05/24/25 Three Impairment Frequent voiding at nighttime (2x/night) Short Term Goal (STG Pt will be able to modify her nighttime routine to stop ) fluid intake 1-2 hrs before bedtime except for fluid needed for medications. STG Duration 04/12/25 Data Integrity Specialist Goal (LTG) Pt will retrain her bladder to reduce the number of nighttime voids from 2x/night -> 1x/night. LTG Duration 05/24/25 Two Impairment Urinary incontinence requiring use of pad during the day and the night. Short Term Goal (STG Not worsen, but improve level of urinary continence to ) use daytime poise no more than #2-3 pad daytime, #1-2 pad nighttime, and reduce/elimiinate leakage when bending over. STG Duration 04/12/25 Data Integrity Specialist Goal (LTG) Improve level of urinary continence to return pt to prior level of #2 pad during the day, and no pad at nighttime. LTG Duration 05/24/25 One Impairment Pt lacks an independent self care HEP. Short Term Goal (STG Pt will be educated and able to demonstrate transfers ) to lessen core abdominal pressure. STG Duration 04/12/25 Nursing Home Goal (LTG) Pt will be independent in a self care HEP for PF strengthening; hip mobility/strengthening; and deep breathing. LTG Duration 05/24/25 Assessment Summary Assessment Pt is a 65 yo female who presents with mixed urinary incontinence s/p hyste (05/06), due to PF weakness and possible tightness as pt has very small vaginal opening , tightness of PF without pain, and she uses substitute ms to perform a PF contraction; she demonstrates poor core pressure management with her transfers (breath holding), and asymmetry of hip(rot)/trunk soft tissue mobility. Assessment of hip strength was deferred due to onset of L hip pain after placing the position in supine and sidelie for other hip strength assessments. Use of biofeedback may be helpful in improving her ability to relax her PF muscles between contractions; thereby improving her PF strength. The pt will benefit from skilled physical therapy to work towards achieving the above stated goals. Physical Therapy Plan Frequency and Duration Frequency of 1x/Week Treatment Duration of 12 treatment (weeks) Plan of Care Start 02/27/25 Date Plan of Care End 05/24/25 Date Therapeutic Interventions Therapeutic Home Exercise Program,Manual Therapy,Neuromuscular Re- Interventions education,Self-Care/Home Management,Soft Tissue Mobilization,Therapeutic Activities,Therapeutic Exercises Next Visit Focus/Plan Next Note Type Treatment Note Next Visit Plan POC: 1x/wk as pt is able to make it from [facility]. Mixed urinary incontinence with complications due to lumbar/hips/L Sciatic pain, arthritis. Focus on HEP as pt comes from [place]. Pt education, Manual therapy. Biofeedback with vaginal sensor for PF relaxation & strengthening, Therapeutic Exercises, Therapeutic Activities, Neuromuscular Reeducation. 2nd visit: Review Bladder dairy (discuss fluid intake (AM/PM), urinary voiding frequency, & nighttime voiding frequency, times between voids and voiding times, types of intake fluids , bladder irritants, and ?just in case? voiding, & bowel movement frequency). Review Kegels (on wedge), Add Hamstring stretch position Kegels, teach urinary delay technique & core pressure management. 3rd visit: Review transfers & ex's. Biofeedback assessment. Progress PF strengthening with and w/o biofeedback.
--- NOTE | 2025-03-06 16:38 | PT.OTN ---
Current Diagnoses Other female genital prolapse (03/06/25) Unspecified urinary incontinence (03/06/25) Physical Therapy Treatment Note PT-OP-A Visit Information Start: 02/16/25 10:27 Freq: Status: Active Protocol: Document 03/06/25 13:00 LRN (Rec: 03/06/25 13:50 LRN Laptop) Out-Patient Physical Therapy Visit Information Visit Information Visit Type Treatment Note Visit Start Time 13:00 Visit Stop Time 13:43 Visit Number 2 (03/29/25 PN) Evaluation Information Evaluation Date 02/27/25 Precautions Precautions Rheumatoid Arthritis (notable in low back); Hysterectomy 05/2024; Partial L nephrectomy; HBP controlled by meds; Diabetes II controlled by meds, diet, exercise; Osteoporosis of L hip. PT-OP-B Current Condition Start: 02/16/25 10:27 Freq: Status: Active Protocol: Document 02/27/25 13:45 LRN (Rec: 02/27/25 14:55 LRN Laptop) Current Condition History of Current Condition Onset Date 05/2024 Current Complaints Incontinence wearing a #3 poise pad History of Current Hysterectomy in May [address] Temple due to fibroid Condition and pelvic pain (no longer has pelvic pain), and now has to wear (before hyste wore pad only during the day poise), now wears a poise #3 pad daytime, #2 pad nighttime (previously no pad at nighttime). Urination doesn't come out as quickly and has a couple of instances of urgency (on diuretic). If doesn't pay attention and waits longer to urinate then can't make it to bathroom without leaking. Urinary leakage interferes with social activities. Must know where all the bathrooms are and withholds fluids depending on activities of the day. Foot drop on L LE (2021), now has a little bit of a big toe drop. 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 Treatment Goals Patient/Caregiver Pt goals: Goals -Decrease urinary leakage with urgency to be able to make it to the toilet 80% of time (LTG: make it to toilet 100% of time). -Not have to use a urinary pad of more thickness than what she is using now (LTG: return to prior level of no pad at nighttime and #2 pad during the day). -Pt will reduce the times getting up to urinate through the night from 2x to 1x/night. -Reduce leakage when bending over. Prior Functional Status Baseline Function- Small amt of leakage, wearing 1 Poise pad during day. Work/School Current Functional Impairments (Reported) Functional Medium : Wearing 3 pad during day and 2 pad during the Limitations- ADL's night. Leak if waiting too long, and bending over, and overnight, and walking to toilet. Must monitor location of bathrooms and fluid intake. Personal Factors Other Personal Lives [facility]. Factors That May Hyste 05/2024, Effect Therapy/ Rheumatoid Arthritis, Recovery Diabetes II controlled by meds, diet, exercise Osteoporosis of L hip. PT-OP-C Subjective Start: 02/16/25 10:27 Freq: Status: Active Protocol: Document 03/06/25 13:00 LRN (Rec: 03/06/25 13:50 LRN Laptop) OP-PT Subjective Patient Comments Patient Comments States she has more triggers than she thought. States there is less urinary leaks because she was voiding when felt the urge. PT-OP-I Pelvic Floor Start: 02/16/25 10:27 Freq: Status: Active Protocol: Document 02/27/25 13:45 LRN (Rec: 02/27/25 15:53 LRN Laptop) Pelvic Floor Assessment Pelvic Clock Pelvic Clock Other Tightness around the clock without pain. Prolapse Prolapse Comments Not able to assess, vaginal opening too small to visualize. Bladder felt with internal assessment. Contraction Ability Voluntary Weak Contraction Voluntary Relaxation Weak Manual Muscle 2 Testing Left Manual Muscle 1 Testing Right Manual Muscle 2 Testing Anterior Manual Muscle 3 Testing Posterior Number of Quick 7 Contractions In 10 Seconds Comments Pelvic Floor Endurance: Pt had gradual loss of strength that was Comments not perceived manually. PT-OP-J Posture/Palpation/Skin Start: 02/16/25 10:27 Freq: Status: Active Protocol: Document 02/27/25 13:45 LRN (Rec: 02/27/25 14:55 LRN Laptop) Posture Evaluation Position Standing Head/C-Spine Posture Side Bent Right Comments Posture Comments L shoulder high, AB arms, elbows felxed, IR forearms, R AB thumb, fingers flexed, L ankle inverts (valgus), Dowagers hump, flat Upper t//s, increased lordosis, anter Pelvic tilt, knees slightly flexed, L shoulder high, head slight SB R, PT-OP-K Range of Motion Start: 02/16/25 10:27 Freq: Status: Active Protocol: Document 02/27/25 13:45 LRN (Rec: 02/27/25 14:55 LRN Laptop) Lumbar Spine Range of Motion Lumbar Spine Active Degrees Testing Position Standing Flexion 87 Extension 3 Rotation Left 25 Rotation Right 25 Lateral Flexion Left 20 Lateral Flexion 18 Right Hip Goniometric Range of Motion Hip Right Passive Testing Position Supine Internal Rotation 20 External Rotation 55 Left Passive Testing Position Supine Internal Rotation 45 External Rotation 30 PT-OP-M Strength Start: 02/16/25 10:27 Freq: Status: Active Protocol: Document 02/27/25 13:45 LRN (Rec: 02/27/25 14:55 LRN Laptop) Hip Strength Hip Manual Muscle Testing Right Flexion (L2) 5 Normal Abduction 5 Normal Adduction 5 Normal External Rotation 5 Normal Internal Rotation 4 Good Comments Sitting hip IR MMT caused pain in the hip; therefore MMT of hip extension deferred. Left External Rotation 5 Normal Internal Rotation 4 Good Comments Sitting hip IR MMT caused pain in the hip; therefore MMT of hip extension deferred. PT-OP-Q Treatments Start: 02/16/25 10:27 Freq: Status: Active Protocol: Document 03/06/25 13:00 LRN (Rec: 03/06/25 13:50 LRN Laptop) Therapeutic Exercises Supine Exercises Kegels Supine Exercise Name On pillow: Quick & Long hold Kegels Equipment Used Pillow Reps/Minutes 1SH/2 SH x 10, 5 SH/10 SR x 5. Therapeutic Activity Therapeutic Activity Transfer w/fore pressure mgmt Name Sup>sit>stand core pressure mgmt training. Reps/Minutes 5' Comments V. cuing needed through out transfer. Self-Care/Home Management Treatment Education Other Education Discussed use of urge deference technique to delay urination with pt education and training. Reviewed and discussed Bladder dairy, and discussed fluid intake (AM/PM), methods to decrease caffeine, urinary voiding frequency, & nighttime voiding frequency and how to minimize time getting up at night, times between voids and voiding times, types of intake fluids , bladder irritants. Activities Self-Care/Home Issued handouts: Bladder irritants, & bladder Management retraining (urge deference technique). Activities PT-OP-T Assessment and Plan Start: 02/16/25 10:27 Freq: Status: Active Protocol: Document 03/06/25 13:00 LRN (Rec: 03/06/25 13:50 LRN Laptop) Physical Therapy Assessment Goals Four Impairment Urge urinary leakage when delaying voiding with an urge . Short Term Goal (STG Pt will be educated in urge deference technique to be ) able to delay urination and decrease urinary leakage. 03/06/25: Pt educated in urge deference technique. STG Duration 04/12/25 progressed 03/06/25 Hatch Boss Goal (LTG) Decrease urinary leakage with urgency to be able to make it to toilet 80%-100% of time. LTG Duration 05/24/25 Three Impairment Frequent voiding at nighttime (2x/night) Short Term Goal (STG Pt will be able to modify her nighttime routine to stop ) fluid intake 1-2 hrs before bedtime except for fluid needed for medications. STG Duration 04/12/25 Residential Goal (LTG) Pt will retrain her bladder to reduce the number of nighttime voids from 2x/night -> 1x/night. LTG Duration 05/24/25 Two Impairment Urinary incontinence requiring use of pad during the day and the night. Short Term Goal (STG Not worsen, but improve level of urinary continence to ) use daytime poise no more than #2-3 pad daytime, #1-2 pad nighttime, and reduce/elimiinate leakage when bending over. STG Duration 04/12/25 Hatch Boss Goal (LTG) Improve level of urinary continence to return pt to prior level of #2 pad during the day, and no pad at nighttime. LTG Duration 05/24/25 One Impairment Pt lacks an independent self care HEP. Short Term Goal (STG Pt will be educated and able to demonstrate transfers ) to lessen core abdominal pressure. 03/06/25: Sup>sit>stand core pressure mgmt training. STG Duration 04/12/25 progressed 03/06/25 (pt to demonstrate) Hatch Boss Goal (LTG) Pt will be independent in a self care HEP for PF strengthening; hip mobility/strengthening; and deep breathing. 03/06/25: HEP of Kegels (quick & long hold) LTG Duration 05/24/25 progressed 03/06/25 Assessment Summary Assessment 65 yo female who presents with mixed urinary incontinence s/p hyste (05/06), due to PF weakness and possible tightness as pt has very small vaginal opening , tightness of PF without pain, and she uses substitute ms to perform a PF contractions; she demonstrates asymmetry of hip(rot)/trunk soft tissue mobility. Today, pt was receptive to training for core pressure management with transfers, reducing breath holding and appeared to have good understanding. , and Use of biofeedback may be helpful in improving her ability to relax her PF muscles between contractions; thereby improving her PF strength. Assessment of hip strength was deferred due to onset of L hip pain after placing the position in supine and sidelie for other hip strength assessments. Physical Therapy Plan Frequency and Duration Frequency of 1x/Week Treatment Duration of 12 treatment (weeks) Plan of Care Start 02/27/25 Date Plan of Care End 05/24/25 Date Next Visit Focus/Plan Next Note Type Treatment Note Next Visit Plan 1x/wk as pt is able to make it from [facility]. Assess of hip strength. Focus on placing pt on HEP. Assess response to urinary delay technique & core pressure management (Review transfers & exercise - hips on pillow/wedge). Review bladder diary for Bowel involvement. Discuss ?just in case? voiding, & bowel movement frequency as appropriate after bladder diary review. Exer: Kegels on wedge, Add Hamstring stretch position Kegels, Biofeedback assessment. Progress PF strengthening with and w/o biofeedback. POC: Rehab for mixed urinary incontinence with complications due to lumbar/hips/L Sciatic pain, arthritis and possible tight PF due to small vaginal opening. Pt education, Manual therapy. Biofeedback with vaginal sensor for PF relaxation & strengthening, Therapeutic Exercises, Therapeutic Activities, Neuromuscular
--- NOTE | 2025-03-12 14:16 | PT.OTN ---
Current Diagnoses Other female genital prolapse (03/12/25) Unspecified urinary incontinence (03/12/25) Physical Therapy Treatment Note PT-OP-A Visit Information Start: 02/16/25 10:27 Freq: Status: Active Protocol: Document 03/12/25 12:47 LRN (Rec: 03/12/25 14:15 LRN Laptop) Out-Patient Physical Therapy Visit Information Visit Information Visit Type Treatment Note Visit Start Time 13:00 Visit Stop Time 13:50 Visit Number 3 (03/29/25 PN) Evaluation Information Evaluation Date 02/27/25 Precautions Precautions Rheumatoid Arthritis (notable in low back); Hysterectomy 05/2024; Partial L nephrectomy; HBP controlled by meds; Diabetes II controlled by meds, diet, exercise; Osteoporosis of L hip. PT-OP-B Current Condition Start: 02/16/25 10:27 Freq: Status: Active Protocol: Document 02/27/25 13:45 LRN (Rec: 02/27/25 14:55 LRN Laptop) Current Condition History of Current Condition Onset Date 05/2024 Current Complaints Incontinence wearing a #3 poise pad History of Current Hysterectomy in May [address] Temple due to fibroid Condition and pelvic pain (no longer has pelvic pain), and now has to wear (before hyste wore pad only during the day poise), now wears a poise #3 pad daytime, #2 pad nighttime (previously no pad at nighttime). Urination doesn't come out as quickly and has a couple of instances of urgency (on diuretic). If doesn't pay attention and waits longer to urinate then can't make it to bathroom without leaking. Urinary leakage interferes with social activities. Must know where all the bathrooms are and withholds fluids depending on activities of the day. Foot drop on L LE (2021), now has a little bit of a big toe drop. 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 Treatment Goals Patient/Caregiver Pt goals: Goals -Decrease urinary leakage with urgency to be able to make it to the toilet 80% of time (LTG: make it to toilet 100% of time). -Not have to use a urinary pad of more thickness than what she is using now (LTG: return to prior level of no pad at nighttime and #2 pad during the day). -Pt will reduce the times getting up to urinate through the night from 2x to 1x/night. -Reduce leakage when bending over. Prior Functional Status Baseline Function- Small amt of leakage, wearing 1 Poise pad during day. Work/School Current Functional Impairments (Reported) Functional Medium : Wearing 3 pad during day and 2 pad during the Limitations- ADL's night. Leak if waiting too long, and bending over, and overnight, and walking to toilet. Must monitor location of bathrooms and fluid intake. Personal Factors Other Personal Lives [facility]. Factors That May Hyste 05/2024, Effect Therapy/ Rheumatoid Arthritis, Recovery Diabetes II controlled by meds, diet, exercise Osteoporosis of L hip. PT-OP-C Subjective Start: 02/16/25 10:27 Freq: Status: Active Protocol: Document 03/06/25 13:00 LRN (Rec: 03/06/25 13:50 LRN Laptop) OP-PT Subjective Patient Comments Patient Comments States she has more triggers than she thought. States there is less urinary leaks because she was voiding when felt the urge. PT-OP-I Pelvic Floor Start: 02/16/25 10:27 Freq: Status: Active Protocol: Document 03/12/25 12:47 LRN (Rec: 03/12/25 14:15 LRN Laptop) Pelvic Floor Assessment SEMG (uV) Baseline 4.4 Recruitment Pattern Good Relaxation Poor/Slow Holding Fair Stability of Hold Fair SEMG Stability of Poor/Slow Rest Comments Pelvic Floor PF assessment with Rectal Electrode, Pt supine with Comments knees up on bolster. Quick Flicks: 10 reps strength (uV's): avg work 17.6, avg rest 10.4. Long Holds: 10 reps strength (uV's): avg work 17.5, avg rest 5.6. PT-OP-J Posture/Palpation/Skin Start: 02/16/25 10:27 Freq: Status: Active Protocol: Document 02/27/25 13:45 LRN (Rec: 02/27/25 14:55 LRN Laptop) Posture Evaluation Position Standing Head/C-Spine Posture Side Bent Right Comments Posture Comments L shoulder high, AB arms, elbows felxed, IR forearms, R AB thumb, fingers flexed, L ankle inverts (valgus), Dowagers hump, flat Upper t//s, increased lordosis, anter Pelvic tilt, knees slightly flexed, L shoulder high, head slight SB R, PT-OP-K Range of Motion Start: 02/16/25 10:27 Freq: Status: Active Protocol: Document 02/27/25 13:45 LRN (Rec: 02/27/25 14:55 LRN Laptop) Lumbar Spine Range of Motion Lumbar Spine Active Degrees Testing Position Standing Flexion 87 Extension 3 Rotation Left 25 Rotation Right 25 Lateral Flexion Left 20 Lateral Flexion 18 Right Hip Goniometric Range of Motion Hip Right Passive Testing Position Supine Internal Rotation 20 External Rotation 55 Left Passive Testing Position Supine Internal Rotation 45 External Rotation 30 PT-OP-M Strength Start: 02/16/25 10:27 Freq: Status: Active Protocol: Document 02/27/25 13:45 LRN (Rec: 02/27/25 14:55 LRN Laptop) Hip Strength Hip Manual Muscle Testing Right Flexion (L2) 5 Normal Abduction 5 Normal Adduction 5 Normal External Rotation 5 Normal Internal Rotation 4 Good Comments Sitting hip IR MMT caused pain in the hip; therefore MMT of hip extension deferred. Left External Rotation 5 Normal Internal Rotation 4 Good Comments Sitting hip IR MMT caused pain in the hip; therefore MMT of hip extension deferred. PT-OP-Q Treatments Start: 02/16/25 10:27 Freq: Status: Active Protocol: Document 03/12/25 12:47 LRN (Rec: 03/12/25 14:15 LRN Laptop) Therapeutic Exercises Supine Exercises PF Endurance 10SH Supine Exercise Name Rectal Vemg Long Holds Reps/Minutes 9' Comments Extra time for doffing electrode. V cuing needed throughout ex PF Quick Flicks Supine Exercise Name Rectal Vemg Quick Flicks Reps/Minutes 8' Comments Extra time for donning electrode. V cuing needed throughout ex PF Resting Supine Exercise Name Resting/relaxation of PF Reps/Minutes 3' Kegels Supine Exercise Name On pillow: Quick & Long hold Kegels Equipment Used Attempted wedge, but back pain shifted to hips on Pillow Reps/Minutes 1SH/2 SH x 10, 5 SH/10 SR x 5. Comments Extra time taken to deter best positioning/tolerance for ex. Standing Exercises Kegel in HS stretch position Standing Exercise Long hold kegel (through 3 breaths) Name Reps/Minutes 5' Therapeutic Activity Therapeutic Activity Transfer w/fore pressure mgmt Name Sup>sit>stand core pressure mgmt review. Reps/Minutes 5' Comments V. cuing needed through out transfer. Self-Care/Home Management Treatment Education Other Education Reviewed & discussed bladder diary for Bowel involvement, of frequency, types, and times per day, times between urinary voids needing to be 3-4 hrs (not 5 hrs), fluid intake (decreasing caffeine for more fluid intake), and aggrevator kegels. PT-OP-T Assessment and Plan Start: 02/16/25 10:27 Freq: Status: Active Protocol: Document 03/12/25 12:47 LRN (Rec: 03/12/25 14:15 LRN Laptop) Physical Therapy Assessment Goals Four Impairment Urge urinary leakage when delaying voiding with an urge . Short Term Goal (STG Pt will be educated in urge deference technique to be ) able to delay urination and decrease urinary leakage. 03/06/25: Pt educated in urge deference technique. 03/12/25: Urinary continent 75% of the time using urge deference technique. STG Duration 04/12/25 (03/12/25: MET GOAL) Correction Goal (LTG) Decrease urinary leakage with urgency to be able to make it to toilet 80%-100% of time. 03/12/25: Urinary continent 75% of the time using urge deference technique. LTG Duration 05/24/25 Three Impairment Frequent voiding at nighttime (2x/night) Short Term Goal (STG Pt will be able to modify her nighttime routine to stop ) fluid intake 1-2 hrs before bedtime except for fluid needed for medications. 03/12/25: Pt has stopped drinking a couple hrs before bedtime and is voiding before going to bed; voiding now is 2x/night vs 3-4x/night. STG Duration 04/12/25 (03/12/25: MET GOAL) Participant Administrator Goal (LTG) Pt will retrain her bladder to reduce the number of nighttime voids from 2x/night -> 1x/night. LTG Duration 05/24/25 Two Impairment Urinary incontinence requiring use of pad during the day and the night. Short Term Goal (STG Not worsen, but improve level of urinary continence to ) use daytime poise no more than #2-3 pad daytime, #1-2 pad nighttime, and reduce/elimiinate leakage when bending over. STG Duration 04/12/25 Correction Goal (LTG) Improve level of urinary continence to return pt to prior level of #2 pad during the day, and no pad at nighttime. LTG Duration 05/24/25 One Impairment Pt lacks an independent self care HEP. Short Term Goal (STG Pt will be educated and able to demonstrate transfers ) to lessen core abdominal pressure. 03/06/25: Sup>sit>stand core pressure mgmt training. 03/12/25: Pt demonstrates good knowledge of transfer to lessen core pressure. STG Duration 04/12/25 (03/12/25: MET GOAL) Correction Goal (LTG) Pt will be independent in a self care HEP for PF strengthening; hip mobility/strengthening; and deep breathing. 03/06/25: HEP of Kegels (quick & long hold) LTG Duration 05/24/25 progressed 03/06/25 Assessment Summary Assessment 65 yo female who presents with mixed urinary incontinence s/p hyste (05/06), due to PF weakness and possible tightness as pt has very small vaginal opening , tightness of PF without pain, and no longer uses substitute ms to perform a PF contractions; she demonstrates asymmetry of hip(rot)/trunk soft tissue mobility. Today, pt's bilateral hip strength is 5/5 with all motions. Bladder Diary indicates voiding change from every 3hrs to every 4 hrs, and is leaking 2x/day vs 3x/day with use of urinary delay technique. States she is doing proper core pressure mgmt 75% of the time. Pt leaks with bending over, transfers in/ out of car, lifting, gardening, and sometimes getting into bed, occasionally up from toilet, on a walk and climbing stairs. Bowel mvmts mostly daily, type # stools - good. Physical Therapy Plan Frequency and Duration Frequency of 1x/Week Treatment Duration of 12 treatment (weeks) Plan of Care Start 02/27/25 Date Plan of Care End 05/24/25 Date Next Visit Focus/Plan Next Note Type Treatment Note Next Visit Plan 1x/wk as pt is able to make it from [facility]. Focus on placing pt on HEP. Rectal Vemg neuro ruby training for PF ms relaxation. Progress exercises to get PF relaxation - hips on pillow/wedge. Monitor urinary leakage with increase in core pressure with transfers into bed, bending over, gardening, walking, stairs, stand from sit (from toilet). Discuss ?just in case? voiding. Exer: Kegels on wedge, PF assessment in different positions. Progress PF strengthening with and w/o biofeedback. POC: Rehab for mixed urinary incontinence with complications due to lumbar/hips/L Sciatic pain, arthritis and possible tight PF due to small vaginal opening. Pt education, Manual therapy. Biofeedback with vaginal sensor for PF relaxation & strengthening, Therapeutic Exercises, Therapeutic Activities, Neuromuscular
--- NOTE | 2025-03-12 14:19 | PT.OTN ---
Current Diagnoses Other female genital prolapse (03/12/25) Unspecified urinary incontinence (03/12/25) Physical Therapy Treatment Note PT-OP-A Visit Information Start: 02/16/25 10:27 Freq: Status: Active Protocol: Document 03/12/25 12:47 LRN (Rec: 03/12/25 14:15 LRN Laptop) Out-Patient Physical Therapy Visit Information Visit Information Visit Type Treatment Note Visit Start Time 13:00 Visit Stop Time 13:50 Visit Number 3 (03/29/25 PN) Evaluation Information Evaluation Date 02/27/25 Precautions Precautions Rheumatoid Arthritis (notable in low back); Hysterectomy 05/2024; Partial L nephrectomy; HBP controlled by meds; Diabetes II controlled by meds, diet, exercise; Osteoporosis of L hip. PT-OP-B Current Condition Start: 02/16/25 10:27 Freq: Status: Active Protocol: Document 02/27/25 13:45 LRN (Rec: 02/27/25 14:55 LRN Laptop) Current Condition History of Current Condition Onset Date 05/2024 Current Complaints Incontinence wearing a #3 poise pad History of Current Hysterectomy in May [address] Temple due to fibroid Condition and pelvic pain (no longer has pelvic pain), and now has to wear (before hyste wore pad only during the day poise), now wears a poise #3 pad daytime, #2 pad nighttime (previously no pad at nighttime). Urination doesn't come out as quickly and has a couple of instances of urgency (on diuretic). If doesn't pay attention and waits longer to urinate then can't make it to bathroom without leaking. Urinary leakage interferes with social activities. Must know where all the bathrooms are and withholds fluids depending on activities of the day. Foot drop on L LE (2021), now has a little bit of a big toe drop. 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 Treatment Goals Patient/Caregiver Pt goals: Goals -Decrease urinary leakage with urgency to be able to make it to the toilet 80% of time (LTG: make it to toilet 100% of time). -Not have to use a urinary pad of more thickness than what she is using now (LTG: return to prior level of no pad at nighttime and #2 pad during the day). -Pt will reduce the times getting up to urinate through the night from 2x to 1x/night. -Reduce leakage when bending over. Prior Functional Status Baseline Function- Small amt of leakage, wearing 1 Poise pad during day. Work/School Current Functional Impairments (Reported) Functional Medium : Wearing 3 pad during day and 2 pad during the Limitations- ADL's night. Leak if waiting too long, and bending over, and overnight, and walking to toilet. Must monitor location of bathrooms and fluid intake. Personal Factors Other Personal Lives [employer]. Factors That May Hyste 05/2024, Effect Therapy/ Rheumatoid Arthritis, Recovery Diabetes II controlled by meds, diet, exercise Osteoporosis of L hip. PT-OP-C Subjective Start: 02/16/25 10:27 Freq: Status: Active Protocol: Document 03/12/25 12:47 LRN (Rec: 03/12/25 14:18 LRN Laptop) OP-PT Subjective Patient Comments Patient Comments States the urge deference technique was helpful in decreasing her leakage with an urge. Is not able to wait longer between urinary voids and is waking less times at nighttime. Pt notes leakage consistent with bending over. PT-OP-I Pelvic Floor Start: 02/16/25 10:27 Freq: Status: Active Protocol: Document 03/12/25 12:47 LRN (Rec: 03/12/25 14:15 LRN Laptop) Pelvic Floor Assessment SEMG (uV) Baseline 4.4 Recruitment Pattern Good Relaxation Poor/Slow Holding Fair Stability of Hold Fair SEMG Stability of Poor/Slow Rest Comments Pelvic Floor PF assessment with Rectal Electrode, Pt supine with Comments knees up on bolster. Quick Flicks: 10 reps strength (uV's): avg work 17.6, avg rest 10.4. Long Holds: 10 reps strength (uV's): avg work 17.5, avg rest 5.6. PT-OP-J Posture/Palpation/Skin Start: 02/16/25 10:27 Freq: Status: Active Protocol: Document 02/27/25 13:45 LRN (Rec: 02/27/25 14:55 LRN Laptop) Posture Evaluation Position Standing Head/C-Spine Posture Side Bent Right Comments Posture Comments L shoulder high, AB arms, elbows felxed, IR forearms, R AB thumb, fingers flexed, L ankle inverts (valgus), Dowagers hump, flat Upper t//s, increased lordosis, anter Pelvic tilt, knees slightly flexed, L shoulder high, head slight SB R, PT-OP-K Range of Motion Start: 02/16/25 10:27 Freq: Status: Active Protocol: Document 02/27/25 13:45 LRN (Rec: 02/27/25 14:55 LRN Laptop) Lumbar Spine Range of Motion Lumbar Spine Active Degrees Testing Position Standing Flexion 87 Extension 3 Rotation Left 25 Rotation Right 25 Lateral Flexion Left 20 Lateral Flexion 18 Right Hip Goniometric Range of Motion Hip Right Passive Testing Position Supine Internal Rotation 20 External Rotation 55 Left Passive Testing Position Supine Internal Rotation 45 External Rotation 30 PT-OP-M Strength Start: 02/16/25 10:27 Freq: Status: Active Protocol: Document 02/27/25 13:45 LRN (Rec: 02/27/25 14:55 LRN Laptop) Hip Strength Hip Manual Muscle Testing Right Flexion (L2) 5 Normal Abduction 5 Normal Adduction 5 Normal External Rotation 5 Normal Internal Rotation 4 Good Comments Sitting hip IR MMT caused pain in the hip; therefore MMT of hip extension deferred. Left External Rotation 5 Normal Internal Rotation 4 Good Comments Sitting hip IR MMT caused pain in the hip; therefore MMT of hip extension deferred. PT-OP-Q Treatments Start: 02/16/25 10:27 Freq: Status: Active Protocol: Document 03/12/25 12:47 LRN (Rec: 03/12/25 14:15 LRN Laptop) Therapeutic Exercises Supine Exercises PF Endurance 10SH Supine Exercise Name Rectal Vemg Long Holds Reps/Minutes 9' Comments Extra time for doffing electrode. V cuing needed throughout ex PF Quick Flicks Supine Exercise Name Rectal Vemg Quick Flicks Reps/Minutes 8' Comments Extra time for donning electrode. V cuing needed throughout ex PF Resting Supine Exercise Name Resting/relaxation of PF Reps/Minutes 3' Kegels Supine Exercise Name On pillow: Quick & Long hold Kegels Equipment Used Attempted wedge, but back pain shifted to hips on Pillow Reps/Minutes 1SH/2 SH x 10, 5 SH/10 SR x 5. Comments Extra time taken to deter best positioning/tolerance for ex. Standing Exercises Kegel in HS stretch position Standing Exercise Long hold kegel (through 3 breaths) Name Reps/Minutes 5' Therapeutic Activity Therapeutic Activity Transfer w/fore pressure mgmt Name Sup>sit>stand core pressure mgmt review. Reps/Minutes 5' Comments V. cuing needed through out transfer. Self-Care/Home Management Treatment Education Other Education Reviewed & discussed bladder diary for Bowel involvement, of frequency, types, and times per day, times between urinary voids needing to be 3-4 hrs (not 5 hrs), fluid intake (decreasing caffeine for more fluid intake), and aggrevator kegels. PT-OP-T Assessment and Plan Start: 02/16/25 10:27 Freq: Status: Active Protocol: Document 03/12/25 12:47 LRN (Rec: 03/12/25 14:15 LRN Laptop) Physical Therapy Assessment Goals Four Impairment Urge urinary leakage when delaying voiding with an urge . Short Term Goal (STG Pt will be educated in urge deference technique to be ) able to delay urination and decrease urinary leakage. 03/06/25: Pt educated in urge deference technique. 03/12/25: Urinary continent 75% of the time using urge deference technique. STG Duration 04/12/25 (03/12/25: MET GOAL) Halfway Goal (LTG) Decrease urinary leakage with urgency to be able to make it to toilet 80%-100% of time. 03/12/25: Urinary continent 75% of the time using urge deference technique. LTG Duration 05/24/25 Three Impairment Frequent voiding at nighttime (2x/night) Short Term Goal (STG Pt will be able to modify her nighttime routine to stop ) fluid intake 1-2 hrs before bedtime except for fluid needed for medications. 03/12/25: Pt has stopped drinking a couple hrs before bedtime and is voiding before going to bed; voiding now is 2x/night vs 3-4x/night. STG Duration 04/12/25 (03/12/25: MET GOAL) Halfway Goal (LTG) Pt will retrain her bladder to reduce the number of nighttime voids from 2x/night -> 1x/night. LTG Duration 05/24/25 Two Impairment Urinary incontinence requiring use of pad during the day and the night. Short Term Goal (STG Not worsen, but improve level of urinary continence to ) use daytime poise no more than #2-3 pad daytime, #1-2 pad nighttime, and reduce/elimiinate leakage when bending over. STG Duration 04/12/25 Journalist Goal (LTG) Improve level of urinary continence to return pt to prior level of #2 pad during the day, and no pad at nighttime. LTG Duration 05/24/25 One Impairment Pt lacks an independent self care HEP. Short Term Goal (STG Pt will be educated and able to demonstrate transfers ) to lessen core abdominal pressure. 03/06/25: Sup>sit>stand core pressure mgmt training. 03/12/25: Pt demonstrates good knowledge of transfer to lessen core pressure. STG Duration 04/12/25 (03/12/25: MET GOAL) Halfway Goal (LTG) Pt will be independent in a self care HEP for PF strengthening; hip mobility/strengthening; and deep breathing. 03/06/25: HEP of Kegels (quick & long hold) LTG Duration 05/24/25 progressed 03/06/25 Assessment Summary Assessment 65 yo female who presents with mixed urinary incontinence s/p hyste (05/06), due to PF weakness and possible tightness as pt has very small vaginal opening , tightness of PF without pain, and no longer uses substitute ms to perform a PF contractions; she demonstrates asymmetry of hip(rot)/trunk soft tissue mobility. Today, pt's bilateral hip strength is 5/5 with all motions. Bladder Diary indicates voiding change from every 3hrs to every 4 hrs, and is leaking 2x/day vs 3x/day with use of urinary delay technique. States she is doing proper core pressure mgmt 75% of the time. Pt leaks with bending over, transfers in/ out of car, lifting, gardening, and sometimes getting into bed, occasionally up from toilet, on a walk and climbing stairs. Bowel mvmts mostly daily, type # stools - good. Physical Therapy Plan Frequency and Duration Frequency of 1x/Week Treatment Duration of 12 treatment (weeks) Plan of Care Start 02/27/25 Date Plan of Care End 05/24/25 Date Next Visit Focus/Plan Next Note Type Treatment Note Next Visit Plan 1x/wk as pt is [facility] to make [facility]. Focus on placing pt on HEP. Rectal Vemg neuro ruby training for PF ms relaxation. Progress exercises to get PF relaxation - hips on pillow/wedge. Monitor urinary leakage with increase in core pressure with transfers into bed, bending over, gardening, walking, stairs, stand from sit (from toilet). Discuss ?just in case? voiding. Exer: Kegels on wedge, PF assessment in different positions. Progress PF strengthening with and w/o biofeedback. POC: Rehab for mixed urinary incontinence with complications due to lumbar/hips/L Sciatic pain, arthritis and possible tight PF due to small vaginal opening. Pt education, Manual therapy. Biofeedback with vaginal sensor for PF relaxation & strengthening, Therapeutic Exercises, Therapeutic Activities, Neuromuscular
--- NOTE | 2025-04-03 12:48 | PT.OTN ---
Current Diagnoses Other female genital prolapse (04/03/25) Unspecified urinary incontinence (04/03/25) Physical Therapy Treatment Note PT-OP-A Visit Information Start: 02/16/25 10:27 Freq: Status: Active Protocol: Document 04/03/25 11:35 LRN (Rec: 04/03/25 12:30 LRN Laptop) Out-Patient Physical Therapy Visit Information Visit Information Visit Type Progress Note Visit Start Time 11:35 Visit Stop Time 12:15 Visit Number 4 (PN done 04/03/25) Evaluation Information Evaluation Date 02/27/25 Precautions Precautions Rheumatoid Arthritis (notable in low back); Hysterectomy 05/2024; Partial L nephrectomy; HBP controlled by meds; Diabetes II controlled by meds, diet, exercise; Osteoporosis of L hip. PT-OP-B Current Condition Start: 02/16/25 10:27 Freq: Status: Active Protocol: Document 02/27/25 13:45 LRN (Rec: 02/27/25 14:55 LRN Laptop) Current Condition History of Current Condition Onset Date 05/2024 Current Complaints Incontinence wearing a #3 poise pad History of Current Hysterectomy in May [address] Temple due to fibroid Condition and pelvic pain (no longer has pelvic pain), and now has to wear (before hye wore pad only during the day poise), now wears a poise #3 pad daytime, #2 pad nighttime (previously no pad at nighttime). Urination doesn't come out as quickly and has a couple of instances of urgency (on diuretic). If doesn't pay attention and waits longer to urinate then can't make it to bathroom without leaking. Urinary leakage interferes with social activities. Must know where all the bathrooms are and withholds fluids depending on activities of the day. Foot drop on L LE (2021), now has a little bit of a big toe drop. 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 Treatment Goals Patient/Caregiver Pt goals: Goals -Decrease urinary leakage with urgency to be able to make it to the toilet 80% of time (LTG: make it to toilet 100% of time). -Not have to use a urinary pad of more thickness than what she is using now (LTG: return to prior level of no pad at nighttime and #2 pad during the day). -Pt will reduce the times getting up to urinate through the night from 2x to 1x/night. -Reduce leakage when bending over. Prior Functional Status Baseline Function- Small amt of leakage, wearing 1 Poise pad during day. Work/School Current Functional Impairments (Reported) Functional Medium : Wearing 3 pad during day and 2 pad during the Limitations- ADL's night. Leak if waiting too long, and bending over, and overnight, and walking to toilet. Must monitor location of bathrooms and fluid intake. Personal Factors Other Personal Lives [facility]. Factors That May Hyste 05/2024, Effect Therapy/ Rheumatoid Arthritis, Recovery Diabetes II controlled by meds, diet, exercise Osteoporosis of L hip. PT-OP-C Subjective Start: 02/16/25 10:27 Freq: Status: Active Protocol: Document 04/03/25 11:35 LRN (Rec: 04/03/25 12:30 LRN Laptop) OP-PT Subjective Patient Comments Patient Comments Has gone down to smaller pad size. Still leakage, but is small and less frequent. Not leaking with urgency when heading to the bathroom. Happy with progress. Patient Questionnaires Pelvic Pain and Urgency/Frequency Patient Symptom Scale Pelvic Pain Score 9 PT-OP-I Pelvic Floor Start: 02/16/25 10:27 Freq: Status: Active Protocol: Document 04/03/25 11:35 LRN (Rec: 04/03/25 12:30 LRN Laptop) Pelvic Floor Assessment SEMG (uV) Baseline 1.8 Recruitment Pattern Good Relaxation Fair Holding Poor/Slow Stability of Hold Poor/Slow SEMG Stability of Poor/Slow Rest Contraction Ability Voluntary Weak Contraction Voluntary Relaxation Weak Manual Muscle 2 Testing Left Manual Muscle 2 Testing Right Manual Muscle 3 Testing Anterior Manual Muscle 1 Testing Posterior Muscle Endurance ( 8 Seconds) Number of Quick 4 Contractions In 10 Seconds Comments Pelvic Floor Kegels done were in isolation of substitute muscles. Comments No contraction felt at PF clock 5 & 6. See Semg value for Endurance. PT-OP-J Posture/Palpation/Skin Start: 02/16/25 10:27 Freq: Status: Active Protocol: Document 02/27/25 13:45 LRN (Rec: 02/27/25 14:55 LRN Laptop) Posture Evaluation Position Standing Head/C-Spine Posture Side Bent Right Comments Posture Comments L shoulder high, AB arms, elbows felxed, IR forearms, R AB thumb, fingers flexed, L ankle inverts (valgus), Dowagers hump, flat Upper t//s, increased lordosis, anter Pelvic tilt, knees slightly flexed, L shoulder high, head slight SB R, PT-OP-K Range of Motion Start: 02/16/25 10:27 Freq: Status: Active Protocol: Document 02/27/25 13:45 LRN (Rec: 02/27/25 14:55 LRN Laptop) Lumbar Spine Range of Motion Lumbar Spine Active Degrees Testing Position Standing Flexion 87 Extension 3 Rotation Left 25 Rotation Right 25 Lateral Flexion Left 20 Lateral Flexion 18 Right Hip Goniometric Range of Motion Hip Right Passive Testing Position Supine Internal Rotation 20 External Rotation 55 Left Passive Testing Position Supine Internal Rotation 45 External Rotation 30 PT-OP-M Strength Start: 02/16/25 10:27 Freq: Status: Active Protocol: Document 02/27/25 13:45 LRN (Rec: 02/27/25 14:55 LRN Laptop) Hip Strength Hip Manual Muscle Testing Right Flexion (L2) 5 Normal Abduction 5 Normal Adduction 5 Normal External Rotation 5 Normal Internal Rotation 4 Good Comments Sitting hip IR MMT caused pain in the hip; therefore MMT of hip extension deferred. Left External Rotation 5 Normal Internal Rotation 4 Good Comments Sitting hip IR MMT caused pain in the hip; therefore MMT of hip extension deferred. PT-OP-Q Treatments Start: 02/16/25 10:27 Freq: Status: Active Protocol: Document 04/03/25 11:35 LRN (Rec: 04/03/25 12:30 LRN Laptop) Therapeutic Exercises Supine Exercises PF Endurance 10SH Supine Exercise Name Without & with Rectal Vemg and Long Holds Reps/Minutes 22' Comments Extra time for doffing electrode. V cuing needed throughout ex PF Quick Flicks Supine Exercise Name Without & with Rectal Vemg Quick Flicks Reps/Minutes 12' Comments Extra time for donning electrode. V cuing needed throughout ex PF Resting Supine Exercise Name Resting/relaxation of PF and with breath Reps/Minutes 5' Self-Care/Home Management Treatment Education Other Education Discussed results of kegels quick and long holds, goals , treatment, and plan of care (POC) ; pt agreeable to ev goals, treatment, and POC. Activities Self-Care/Home I/S pt to do kegels with normal breathing and not deep Management breaths. Activities PT-OP-T Assessment and Plan Start: 02/16/25 10:27 Freq: Status: Active Protocol: Document 04/03/25 11:35 LRN (Rec: 04/03/25 12:30 LRN Laptop) Physical Therapy Assessment Rehab Potential Rehabilitation Good Potential Evaluation Complexity Number of Personal 0 Factors/ Comorbidities Number of Body 4 or More Systems Impaired Clinical Evolving Presentation at Evaluation Impairments Impairments Activity Tolerance,Functional Activities,Pain,Posture, ROM,Soft Tissue Mobility,Strength Goals Four Impairment Urge urinary leakage when delaying voiding with an urge . Short Term Goal (STG Pt will be educated in urge deference technique to be ) able to delay urination and decrease urinary leakage. 03/06/25: Pt educated in urge deference technique. 03/12/25: Urinary continent 75% of the time using urge deference technique. STG Duration 04/12/25 (03/12/25: MET GOAL) Fci Goal (LTG) Decrease urinary leakage with urgency to be able to make it to toilet 90%-100% of time. 03/12/25: Urinary continent 75% of the time using urge deference technique. 04/03/25: Pt is at 85% improved with making it to the toilet w/o leaking with an urge. LTG Duration 05/24/25 progressed 04/03/25 Three Impairment Frequent voiding at nighttime (2x/night) Short Term Goal (STG Pt will be able to modify her nighttime routine to stop ) fluid intake 1-2 hrs before bedtime except for fluid needed for medications. 03/12/25: Pt has stopped drinking a couple hrs before bedtime and is voiding before going to bed; voiding now is 2x/night vs 3-4x/night. STG Duration 04/12/25 (03/12/25: MET GOAL) Fci Goal (LTG) Pt will retrain her bladder to reduce the number of nighttime voids from 2x/night -> 1x/night. 04/03/25: Nighttime voiding is 1-2x/night. LTG Duration 05/24/25 progressed 04/03/25 Two Impairment Urinary incontinence requiring use of pad during the day and the night. Short Term Goal (STG Not worsen, but improve level of urinary continence to ) use daytime poise no more than #2-3 pad daytime, #1-2 pad nighttime, and reduce/elimiinate leakage when bending over. 04/03/25: Using 2 pads/day, 1 pad at night, and reduced urinary leakage by 60% when remembering to tighten PF before bending. STG Duration 04/12/25 (04/03/25: MET GOAL) Cardiovascular Sonographer Goal (LTG) Improve level of urinary continence to return pt to prior level of #2 pad during the day, and no pad at nighttime and lesser pad during the day (now using slim 3) to a regular 2. 04/03/25: Daytime pad use is 2x/day, and 1 pad at night. LTG Duration 05/24/25 progressed 04/03/25 One Impairment Pt lacks an independent self care HEP. Short Term Goal (STG Pt will be educated and able to demonstrate transfers ) to lessen core abdominal pressure. 03/06/25: Sup>sit>stand core pressure mgmt training. 03/12/25: Pt demonstrates good knowledge of transfer to lessen core pressure. STG Duration 04/12/25 (03/12/25: MET GOAL) Cardiovascular Sonographer Goal (LTG) Pt will be independent in a self care HEP for PF strengthening; hip mobility/strengthening; and deep breathing. 03/06/25: HEP of Kegels (quick & long hold). 04/03/25: I/S in Kegels w/normal breathing (not deep breathing) LTG Duration 05/24/25 progressed 04/03/25 Assessment Summary Assessment Pt is a 65 yo female with mixed urinary incontinence (s /p hyste 05/06), due to PF weakness and difficulty in relaxing PF after contraction, and asymmetry of hip(rot )/trunk soft tissue mobility. Today, she is able to do a kegel in isolation of her substitute muscles and is showing good awareness of managing her core pressure with transfers and movement, although she does admit to forgetting to breath with movement sometimes still. Pt has improved her level of continence with reduced need for changing of pads day and night, and is progressing well with therapy. The pt now needs to work on strengthening her PF especially at 5-6 of PF clock and to learn to relax her PF between contractions . The pt will benefit from continued skilled physical therapy to continue to work towards improving in the areas previously mentioned and to achieve the above stated goals. Physical Therapy Plan Frequency and Duration Frequency of 1x/Week Treatment Duration of 12 treatment (weeks) Plan of Care Start 02/27/25 Date Plan of Care End 05/24/25 Date Therapeutic Interventions Therapeutic Home Exercise Program,Joint Mobilizations,Manual Interventions Therapy,Neuromuscular Re-education,Self-Care/Home Management,Soft Tissue Mobilization,Therapeutic Activities,Therapeutic Exercises Modalities Biofeedback Next Visit Focus/Plan Next Note Type Treatment Note Next Visit Plan 1x/wk as pt is able to make it from [facility]. Focus on placing pt on HEP. Next: Discuss ?just in case? voiding and teach reverse kegel. Rectal emg probe for neuro ruby training for PF ms relaxation between contractions and normalize PF tone at rest. Progress exercises to get PF relaxation - hips on pillow/wedge. Monitor urinary leakage with increase in core pressure with transfers into bed, bending over, gardening, walking, ?stairs. Manual: STM to hip AD, abdomen, low back. Exer: Kegels on wedge, PF assessment in different positions. Progress PF strengthening with and w/o biofeedback. POC: Rehab for mixed urinary incontinence with complications due to lumbar/hips/L Sciatic pain, arthritis and possible tight PF due to small vaginal opening. Pt education, Manual therapy. Biofeedback with vaginal sensor for PF relaxation & strengthening, Therapeutic Exercises, Therapeutic Activities, Neuromuscular
--- NOTE | 2025-04-19 10:13 | PT.OTN ---
Current Diagnoses Other female genital prolapse (04/19/25) Unspecified urinary incontinence (04/19/25) Physical Therapy Treatment Note PT-OP-A Visit Information Start: 02/16/25 10:27 Freq: Status: Active Protocol: Document 04/19/25 08:22 LRN (Rec: 04/19/25 09:11 LRN Laptop) Out-Patient Physical Therapy Visit Information Visit Information Visit Type Treatment Note Visit Start Time 08:22 Visit Stop Time 08:56 Visit Number 6 (PN done 04/03/25) Evaluation Information Evaluation Date 02/27/25 Precautions Precautions Rheumatoid Arthritis (notable in low back); Hysterectomy 05/2024; Partial L nephrectomy; HBP controlled by meds; Diabetes II controlled by meds, diet, exercise; Osteoporosis of L hip. PT-OP-B Current Condition Start: 02/16/25 10:27 Freq: Status: Active Protocol: Document 02/27/25 13:45 LRN (Rec: 02/27/25 14:55 LRN Laptop) Current Condition History of Current Condition Onset Date 05/2024 Current Complaints Incontinence wearing a #3 poise pad History of Current Hysterectomy in May [address] Temple due to fibroid Condition and pelvic pain (no longer has pelvic pain), and now has to wear (before hyste wore pad only during the day poise), now wears a poise #3 pad daytime, #2 pad nighttime (previously no pad at nighttime). Urination doesn't come out as quickly and has a couple of instances of urgency (on diuretic). If doesn't pay attention and waits longer to urinate then can't make it to bathroom without leaking. Urinary leakage interferes with social activities. Must know where all the bathrooms are and withholds fluids depending on activities of the day. Foot drop on L LE (2021), now has a little bit of a big toe drop. 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 Treatment Goals Patient/Caregiver Pt goals: Goals -Decrease urinary leakage with urgency to be able to make it to the toilet 80% of time (LTG: make it to toilet 100% of time). -Not have to use a urinary pad of more thickness than what she is using now (LTG: return to prior level of no pad at nighttime and #2 pad during the day). -Pt will reduce the times getting up to urinate through the night from 2x to 1x/night. -Reduce leakage when bending over. Prior Functional Status Baseline Function- Small amt of leakage, wearing 1 Poise pad during day. Work/School Current Functional Impairments (Reported) Functional Medium : Wearing 3 pad during day and 2 pad during the Limitations- ADL's night. Leak if waiting too long, and bending over, and overnight, and walking to toilet. Must monitor location of bathrooms and fluid intake. Personal Factors Other Personal Lives [employer] [facility] [facility]. Factors That May Hyste 05/2024, Effect Therapy/ Rheumatoid Arthritis, Recovery Diabetes II controlled by meds, diet, exercise Osteoporosis of L hip. PT-OP-C Subjective Start: 02/16/25 10:27 Freq: Status: Active Protocol: Document 04/19/25 08:22 LRN (Rec: 04/19/25 09:11 LRN Laptop) OP-PT Subjective Patient Comments Patient Comments Tired today, had gone on a 3 day trip to [place]. No changes, leaking a little. PT-OP-I Pelvic Floor Start: 02/16/25 10:27 Freq: Status: Active Protocol: Document 04/10/25 11:32 LRN (Rec: 04/10/25 12:35 LRN Laptop) Pelvic Floor Assessment SEMG (uV) Baseline 0.8 Comments Pelvic Floor PF assessment with Rectal Electrode, Pt supine with Comments knees up on bolster. Quick Flicks: 10 reps strength (uV's): avg work 17.6, avg rest 10.4. Long Holds: 10 reps strength (uV's): avg work 4.1, avg rest 1.5. PT-OP-J Posture/Palpation/Skin Start: 02/16/25 10:27 Freq: Status: Active Protocol: Document 02/27/25 13:45 LRN (Rec: 02/27/25 14:55 LRN Laptop) Posture Evaluation Position Standing Head/C-Spine Posture Side Bent Right Comments Posture Comments L shoulder high, AB arms, elbows felxed, IR forearms, R AB thumb, fingers flexed, L ankle inverts (valgus), Dowagers hump, flat Upper t//s, increased lordosis, anter Pelvic tilt, knees slightly flexed, L shoulder high, head slight SB R, PT-OP-K Range of Motion Start: 02/16/25 10:27 Freq: Status: Active Protocol: Document 02/27/25 13:45 LRN (Rec: 02/27/25 14:55 LRN Laptop) Lumbar Spine Range of Motion Lumbar Spine Active Degrees Testing Position Standing Flexion 87 Extension 3 Rotation Left 25 Rotation Right 25 Lateral Flexion Left 20 Lateral Flexion 18 Right Hip Goniometric Range of Motion Hip Right Passive Testing Position Supine Internal Rotation 20 External Rotation 55 Left Passive Testing Position Supine Internal Rotation 45 External Rotation 30 PT-OP-M Strength Start: 02/16/25 10:27 Freq: Status: Active Protocol: Document 02/27/25 13:45 LRN (Rec: 02/27/25 14:55 LRN Laptop) Hip Strength Hip Manual Muscle Testing Right Flexion (L2) 5 Normal Abduction 5 Normal Adduction 5 Normal External Rotation 5 Normal Internal Rotation 4 Good Comments Sitting hip IR MMT caused pain in the hip; therefore MMT of hip extension deferred. Left External Rotation 5 Normal Internal Rotation 4 Good Comments Sitting hip IR MMT caused pain in the hip; therefore MMT of hip extension deferred. PT-OP-Q Treatments Start: 02/16/25 10:27 Freq: Status: Active Protocol: Document 04/19/25 08:22 LRN (Rec: 04/19/25 09:11 LRN Laptop) Neuro Re-Education Treatment Coordination Activities Kegel with lift/exhale Details 1 Kegel with lift/exhale after 2 lift w/exhale Speed slow Reps/Duration 10x 3 Comments Rests between sets for normal breathing Kegel w/exhale Details Lift (bicep curl) w/exhale x 2, f/b kegel w/exhale Reps/Duration 10x Comments Extra time needed to try and coordinate kegel with exhale, as pt has been doing kegel with inhale and lifts/exercises with inhale. Lift w/exhale Details Lift (bicep curl) w/exhale every 3rd lift Equipment 2# (hw) hand weights Reps/Duration 10x 3 Comments Rests between sets for normal breathing Self-Care/Home Management Treatment Education Other Education Pt education and discussion of ?just in case? voiding ( cons of doing). Activities Self-Care/Home I/S pt to practice exhale with exertion of activities Management for good core pressure management with body mechanics. Activities PT-OP-T Assessment and Plan Start: 02/16/25 10:27 Freq: Status: Active Protocol: Document 04/19/25 08:22 LRN (Rec: 04/19/25 09:11 LRN Laptop) Physical Therapy Assessment Goals Four Impairment Urge urinary leakage when delaying voiding with an urge . Short Term Goal (STG Pt will be educated in urge deference technique to be ) able to delay urination and decrease urinary leakage. 03/06/25: Pt educated in urge deference technique. 03/12/25: Urinary continent 75% of the time using urge deference technique. STG Duration 04/12/25 (03/12/25: MET GOAL) Shelter Goal (LTG) Decrease urinary leakage with urgency to be able to make it to toilet 90%-100% of time. 03/12/25: Urinary continent 75% of the time using urge deference technique. 04/03/25: Pt is at 85% improved with making it to the toilet w/o leaking with an urge. LTG Duration 05/24/25 progressed 04/03/25 Three Impairment Frequent voiding at nighttime (2x/night) Short Term Goal (STG Pt will be able to modify her nighttime routine to stop ) fluid intake 1-2 hrs before bedtime except for fluid needed for medications. 03/12/25: Pt has stopped drinking a couple hrs before bedtime and is voiding before going to bed; voiding now is 2x/night vs 3-4x/night. STG Duration 04/12/25 (03/12/25: MET GOAL) Transit Coach Operator Goal (LTG) Pt will retrain her bladder to reduce the number of nighttime voids from 2x/night -> 1x/night. 04/03/25: Nighttime voiding is 1-2x/night. LTG Duration 05/24/25 progressed 04/03/25 Two Impairment Urinary incontinence requiring use of pad during the day and the night. Short Term Goal (STG Not worsen, but improve level of urinary continence to ) use daytime poise no more than #2-3 pad daytime, #1-2 pad nighttime, and reduce/elimiinate leakage when bending over. 04/03/25: Using 2 pads/day, 1 pad at night, and reduced urinary leakage by 60% when remembering to tighten PF before bending. STG Duration 04/12/25 (04/03/25: MET GOAL) Shelter Goal (LTG) Improve level of urinary continence to return pt to prior level of #2 pad during the day, and no pad at nighttime and lesser pad during the day (now using slim 3) to a regular 2. 04/03/25: Daytime pad use is 2x/day, and 1 pad at night. 04/10/25: Daytime pad - no leakage today for first time. LTG Duration 05/24/25 progressed 04/10/25 One Impairment Pt lacks an independent self care HEP. Short Term Goal (STG Pt will be educated and able to demonstrate transfers ) to lessen core abdominal pressure. 03/06/25: Sup>sit>stand core pressure mgmt training. 03/12/25: Pt demonstrates good knowledge of transfer to lessen core pressure. STG Duration 04/12/25 (03/12/25: MET GOAL) Transit Coach Operator Goal (LTG) Pt will be independent in a self care HEP for PF strengthening; hip mobility/strengthening; and deep breathing. 03/06/25: HEP of Kegels (quick & long hold). 04/03/25: I/S in Kegels w/normal breathing (not deep breathing). 04/10/25: I/S pt to do Kegels in sit & stand, and try kegel with inhale instead of exhale. LTG Duration 05/24/25 progressed 04/03/25 Assessment Summary Assessment ......... Pt is became frustrated because she could not coordinate her kegels with exhale vs inhale. Pt admits to being very tired from return from her trip and feels she needs to get rest and will practice at home. She was agreeable and tolerated education/ discussion in just in case voiding and to try and change during retraining. Per Vemg, pt is getting a good PF contraction w/exhale, but is not able to coordinate w/inhale. She became frustrated after much practice and chose to discontinue therapy. Pt also admits to being very tired from return of her [place] trip. Physical Therapy Plan Frequency and Duration Frequency of 1x/Week Treatment Duration of 12 treatment (weeks) Plan of Care Start 02/27/25 Date Plan of Care End 05/24/25 Date Next Visit Focus/Plan Next Note Type Treatment Note Next Visit Plan 1x/wk as pt is able to make it from [facility]. Focus on placing pt on HEP. Strengthening on wedge. Next: If pt willing to try new exer: Discuss/teach reverse kegel. VEMG: Neuro ruby training for PF ms relaxation between contractions and normalize PF tone at rest and improve strength and endurance. Check urinary leakage with increase in core pressure with transfers and bending over. Progress exercises to get PF relaxation - hips on pillow/wedge. Check urinary leakage with increase in core pressure with transfers into bed, bending over, gardening, walking, ?stairs. Manual: STM to hip AD, abdomen, low back. POC: Rehab for mixed urinary incontinence with complications due to lumbar/hips/L Sciatic pain, arthritis and possible tight PF due to small vaginal opening. Pt education, Manual therapy. PF strengthening with and w/o biofeedback with vaginal sensor for PF relaxation & strengthening, Therapeutic Exercises, Therapeutic Activities, Neuromuscular Ruby.
--- NOTE | 2025-05-21 12:04 | PT.OPDS ---
Current Diagnoses Other female genital prolapse (04/19/25) Unspecified urinary incontinence (04/19/25) Visit Care Team Role Provider Type Eri Plata MD Family Provider Physician Primary Care Provider Specialty: Family Practice Address: [address] [place] [address], [id number] Email: [email or web address] VICENTE Baugh Attending Provider Advanced Film Process Operator Referring Provider Specialty: Medical Address: [address] [place] [address], [id number] Email: [email or web address] Visit Number Visit Number 6 (PN done 04/03/25) Discharge Summary PT OP: Pelvic Health Start: 04/19/25 19:53 Freq: Status: Active Protocol: Document 05/21/25 11:53 LRN (Rec: 05/21/25 12:04 LRN Laptop) OP-PT Subjective Patient Comments Patient Comments Per phone conversation the pt states she is good and is better than when she first started. She has information the information she needs to continue. Pt agreeable to discharge from PT. Physical Therapy Assessment Goals Four Impairment Urge urinary leakage when delaying voiding with an urge . Short Term Goal (STG Pt will be educated in urge deference technique to be ) able to delay urination and decrease urinary leakage. 03/06/25: Pt educated in urge deference technique. 03/12/25: Urinary continent 75% of the time using urge deference technique. STG Duration 04/12/25 (03/12/25: MET GOAL) Senior Living Goal (LTG) Decrease urinary leakage with urgency to be able to make it to toilet 90%-100% of time. 03/12/25: Urinary continent 75% of the time using urge deference technique. 04/03/25: Pt is at 85% improved with making it to the toilet w/o leaking with an urge. LTG Duration 05/24/25 progressed 04/03/25 Three Impairment Frequent voiding at nighttime (2x/night) Short Term Goal (STG Pt will be able to modify her nighttime routine to stop ) fluid intake 1-2 hrs before bedtime except for fluid needed for medications. 03/12/25: Pt has stopped drinking a couple hrs before bedtime and is voiding before going to bed; voiding now is 2x/night vs 3-4x/night. STG Duration 04/12/25 (03/12/25: MET GOAL) Art Framing Manager Goal (LTG) Pt will retrain her bladder to reduce the number of nighttime voids from 2x/night -> 1x/night. 04/03/25: Nighttime voiding is 1-2x/night. LTG Duration 05/24/25 progressed 04/03/25 Two Impairment Urinary incontinence requiring use of pad during the day and the night. Short Term Goal (STG Not worsen, but improve level of urinary continence to ) use daytime poise no more than #2-3 pad daytime, #1-2 pad nighttime, and reduce/elimiinate leakage when bending over. 04/03/25: Using 2 pads/day, 1 pad at night, and reduced urinary leakage by 60% when remembering to tighten PF before bending. STG Duration 04/12/25 (04/03/25: MET GOAL) Art Framing Manager Goal (LTG) Improve level of urinary continence to return pt to prior level of #2 pad during the day, and no pad at nighttime and lesser pad during the day (now using slim 3) to a regular 2. 04/03/25: Daytime pad use is 2x/day, and 1 pad at night. 04/10/25: Daytime pad - no leakage today for first time. LTG Duration 05/24/25 progressed 04/10/25 One Impairment Pt lacks an independent self care HEP. Short Term Goal (STG Pt will be educated and able to demonstrate transfers ) to lessen core abdominal pressure. 03/06/25: Sup>sit>stand core pressure mgmt training. 03/12/25: Pt demonstrates good knowledge of transfer to lessen core pressure. STG Duration 04/12/25 (03/12/25: MET GOAL) Art Framing Manager Goal (LTG) Pt will be independent in a self care HEP for PF strengthening; hip mobility/strengthening; and deep breathing. 03/06/25: HEP of Kegels (quick & long hold). 04/03/25: I/S in Kegels w/normal breathing (not deep breathing). 04/10/25: I/S pt to do Kegels in sit & stand, and try kegel with inhale instead of exhale. LTG Duration 05/24/25 progressed 04/03/25 Assessment Summary Assessment Pt is a 65 yo female with mixed urinary incontinence (s /p hyste 05/06), due to PF weakness and difficulty in relaxing PF after contraction, and asymmetry of hip(rot )/trunk soft tissue mobility. The pt was seen for her initial eval on 02/27/25, and 5 treatment visits. She improved in her level of continence with urgency and was able to reduce her need for urinary pads during the day. She was also improving in her ability to sleep through the night with less use of pads at nighttime. She has been placed on a home exercise program of exercises. The pt may benefit from physical therapy in the future if she is not able to fully resolve her urinary leakage to her satisfaction. The pt is being discharged to her self care HEP. Physical Therapy Plan Discharge Physical Therapy Discharge Reasons Patient Request Discharge Comments Pt did not fully complete the program but showed good improvement. Thank you for your referral.
== END 2025-05-22 10:52 | disposition home or self-care (01) ==
LOC: PHYS 08:15
PROVIDERS: Family Provider Family Medicine; PCP Family Medicine; Referring Provider Nurse Practitioner Adult Health; Visit Provider Nurse Practitioner Adult Health
DX: N81.89 Other female genital prolapse (principal); R32 Unspecified urinary incontinence
CPT/HCPCS: 97110; 97112; 97162; 97530; 97535

== ENCOUNTER → 2025-07-23 11:42 | Outpatient (CLI) | payer MEDICARE, OTHER, SELFPAY ==
[2024-06-05 08:16] VITALS: BMI 30.7
--- NOTE | 2025-07-23 11:44 | DI.RAD.S_ITS ---
PROCEDURE: XR DEXA AXIAL SKELETON
== END ==
LOC: MAMMO 11:43
PROVIDERS: PCP Family Medicine; Referring Provider Family Medicine; Visit Provider Family Medicine
DX: M81.0 Age-related osteoporosis without current pathological fracture (principal); Z78.0 Asymptomatic menopausal state
CPT/HCPCS: 77080

== ENCOUNTER → 2025-08-24 11:07 | Outpatient (CLI) | payer MEDICARE, OTHER, SELFPAY ==
[2024-06-05 08:16] VITALS: BMI 30.7
--- NOTE | 2025-08-24 11:09 | DI.MG.S_ITS ---
MM screening mammo BI: 08/24/2025. BI-RADS: 1 CLINICAL: 65-year old female for bilateral screening mammogram. Tyrer-Cuzick lifetime risk of 5.6%. No personal or first-degree family history of breast cancer. Current reported family history of breast cancer: maternal aunt's daughter and maternal aunt's second daughter. PRIOR EXAMS 07/18/2024, 06/28/2023, 06/17/2023, 05/21/2022. MAMMOGRAPHY TECHNIQUE: 2D and 3D (tomosynthesis) digital mammographic views obtained, with additional images as needed for full coverage. Current study was also evaluated with a Computer Aided Detection (CAD) system. DENSITY B. There are scattered areas of fibroglandular density. MAMMOGRAPHY FINDINGS Bilateral: No suspicious mass, asymmetry, microcalcification, or other abnormality seen. IMPRESSION: * No evidence of malignancy. RECOMMENDATIONS Bilateral * Annual screening mammography. OVERALL ASSESSMENT CATEGORY BI-RADS-1: Negative. The [employer] recommends annual screening mammography beginning at age 40 for women with average risk of breast cancer. ELECTRONICALLY SIGNED: Do Ortiz M.D. on 08/27/2025 at 02:58:40 PM PT Interpreting Station ID: [id number]
== END ==
LOC: MAMMO 11:08
PROVIDERS: PCP Family Medicine; Referring Provider Family Medicine; Visit Provider Family Medicine
DX: Z12.31 Encounter for screening mammogram for malignant neoplasm of breast (principal); Z80.3 Family history of malignant neoplasm of breast
CPT/HCPCS: 77063; 77067